=== PATIENT | female | born 1950 | race Caucasian/White ===

== ENCOUNTER 2020-09-11 11:17 | Outpatient (REF) | payer MEDICARE, SELFPAY ==
--- NOTE | ~2020-09-11 | MM_ITS ---
EXAMINATION: MM SCREENING DIGITAL BREAST TOMOSYNTHESIS, BILATERAL CLINICAL INFORMATION: Screening. Asymptomatic. The lifetime risk of breast cancer based on the Tyrer-Cuzick Model is 2%. COMPARISON: Mammography: 08/26/2019, 08/30/2018, 08/11/2017 TECHNIQUE: Digital breast tomosynthesis is performed in both the craniocaudal and mediolateral oblique views along with computer-aided detection (CAD). Synthesized 2D images are generated from the tomosynthesis. FINDINGS: There are scattered areas of fibroglandular density (ACR BI-RADS breast composition Category b). There are no significant masses, abnormal calcifications, or other abnormalities. There is mild bilateral chronic nipple retraction. Parenchymal pattern is similar to previous exams. The axilla are unremarkable. MM/MM tomosynthesis screening BI IMPRESSION: No significant changes from prior exams. ASSESSMENT: BI-RADS 2: Benign RECOMMENDATION: Routine annual mammography screening. This patient's information was entered into a reminder system with a target due date for their next mammogram.
== END 2020-09-11 11:18 | disposition home or self-care (01) ==
LOC: HO.MAMMO 11:17
PROVIDERS: PCP Internal Medicine; Visit Provider Internal Medicine
DX: Z12.31 Encounter for screening mammogram for malignant neoplasm of breast (principal)
CPT/HCPCS: 77063; 77067

== ENCOUNTER 2021-01-14 10:31 | Outpatient (REF) | payer MEDICARE, SELFPAY ==
[2021-01-14 10:34] LABS: MANUAL DIFF FLAG NO
[2021-01-14 10:57] LABS: Mean Corpuscular HGB Conc 33.6 g/dl (31.0-35.0); Mean Corpuscular Hemoglobin 32.3 pg (27.0-33.0); Mean Corpuscular Volume 96.1 fL (80.0-98.0); Mean Platelet Volume 10.5 fL (9.4-12.3); Red Cell Distribution Width 12.9 % (11.0-16.0)
[2021-01-14 11:04] LABS: Appearance Urine HAZY; Color Urine YELLOW; Glucose Urine UA NEG (NEG); Leukocyte Esterase Urine 3+ (NEG); Nitrite Urine NEG (NEG); Specific Gravity - Urine 1.015 (1.005-1.025); Urine Blood NEG (NEG); Urine Ketones NEG (NEG); Urine Protein NEG (NEG-TRACE)
[2021-01-14 11:08] LABS: Basophils Percent Auto 0.6 % (0-2); Eosinophils Absolute Auto 0.2 X10*3/uL (0.0-0.4); Eosinophils Percent Auto 2.2 % (0-4); Hematocrit 39.6 % (37.0-47.0); Hemoglobin 13.3 g/dl (12.0-16.0); Imm Gran Abs Auto 0.02 X10*3/uL (0.00-0.03); Imm Gran Pct Auto 0.3 % (0.0-0.4); Lymphocytes Absolute Auto 3.4 X10*3/uL (1.2-4.9); Lymphocytes Percent Auto 46.9 % (20-40); Monocytes Percent Auto 13.1 % (2-11); Neutrophils Absolute Auto 2.7 x10*3/uL (2.0-8.3); Neutrophils Percent Auto 36.9 % (45-73); Platelet Count 316 X10*3/uL (160-400); Red Blood Count 4.12 X10*6/uL (4.20-5.50); White Blood Count 7.2 X10*3/uL (4.8-10.8)
[2021-01-14 11:41] LABS: Bacteria Urine 3+ /LPF; RBC Urine 0 /HPF (0); Squamous Epithelial Cell Urine 2+ /LPF
[2021-01-14 11:50] LABS: Alanine Aminotransferase 16 U/L (0-31); Albumin Level 4.2 g/dL (3.5-5.0); Alkaline Phosphatase 57 U/L (39-117); Anion Gap 9 (12-20); Aspartate Amino Transferase 18 U/L (5-31); Bilirubin Total 0.5 mg/dL (0.0-1.0); Blood Urea Nitrogen 16 mg/dL (9-16); Calcium 9.4 mg/dL (8.4-10.2); Carbon Dioxide 29 mmol/L (22-29); Chloride 111 mmol/L (96-108); Cholesterol 211 mg/dL; Estimated Glomerular Filt Rate > 60; Glucose Fasting 96 mg/dL (60-99); HDL Cholesterol 79 mg/dL; LDL Cholesterol Calculated 114 mg/dl; Sodium 145 mmol/L (135-145); Total Protein 6.7 g/dL (6.5-8.0); Triglycerides 90 mg/dL
== END 2021-01-14 10:32 | disposition home or self-care (01) ==
LOC: HO.LNP 10:31
PROVIDERS: PCP Internal Medicine; Visit Provider Internal Medicine
DX: Z00.00 Encounter for general adult medical examination without abnormal findings (principal); D72.820 Lymphocytosis (symptomatic)
CPT/HCPCS: 80053; 80061; 81001; 81003; 85025

== ENCOUNTER 2021-09-12 12:01 | Outpatient (REF) | payer MEDICARE, SELFPAY ==
--- NOTE | ~2021-09-12 | MM_ITS ---
EXAMINATION: MM SCREENING DIGITAL BREAST TOMOSYNTHESIS, BILATERAL CLINICAL INFORMATION: Screening. Asymptomatic. The lifetime risk of breast cancer based on the Tyrer-Cuzick Model is 4%. COMPARISON: Mammography: 09/11/2020, 09/05/2019, 08/30/2018 TECHNIQUE: Digital breast tomosynthesis is performed in both the craniocaudal and mediolateral oblique views along with computer-aided detection (CAD). Synthesized 2D images are generated from the tomosynthesis. FINDINGS: There are scattered areas of fibroglandular density (ACR BI-RADS breast composition Category b). There are no significant masses, abnormal calcifications, or other abnormalities. Parenchymal pattern is similar to prior studies. The axilla and skin contours are unremarkable. MM/MM tomosynthesis screening BI IMPRESSION: No mammographic evidence of malignancy. ASSESSMENT: BI-RADS 1: Negative RECOMMENDATION: Routine annual mammography screening. This patient's information was entered into a reminder system with a target due date for their next mammogram.
== END 2021-09-12 12:02 | disposition home or self-care (01) ==
LOC: HO.MAMMO 12:01
PROVIDERS: Visit Provider Internal Medicine
DX: Z12.31 Encounter for screening mammogram for malignant neoplasm of breast (principal)
CPT/HCPCS: 77063; 77067

== ENCOUNTER 2022-02-05 13:00 | Outpatient (REF) | payer MEDICARE, SELFPAY ==
--- NOTE | ~2022-02-05 | XR_ITS ---
EXAMINATION: XR SINUSES CLINICAL INFORMATION: Maxillary sinusitis COMPARISON: January 22, 2016 and January 14, 2016 TECHNIQUE: 4 views of the sinuses were obtained. FINDINGS: Paranasal sinuses appear clear without air-fluid levels. No fractures are identified. No radiodense foreign bodies. XR/XR sinus min 3V IMPRESSION: No plain film evidence of acute or chronic sinusitis.
--- NOTE | ~2022-02-05 | XR_ITS ---
EXAMINATION: XR CHEST CLINICAL INFORMATION: Bilateral pneumonia COMPARISON: None TECHNIQUE: 2 views of the chest were obtained. FINDINGS: No previous studies available for comparison as it is stated that the patient has bilateral pneumonia. Within the right upper lobe there is a region of density which could represent a focus of parenchymal disease or possible mass. Within the right lower lobe there is a region of density seen which could represent airspace disease or possible mass. There is some hazy density seen about the lateral aspect of the right hemidiaphragm which may be silhouetting from parenchymal disease or small amount of pleural fluid. No significant abnormality of the left hemithorax is appreciated. No pneumothorax. Heart normal size. No evidence of pulmonary edema. XR/XR chest 2V IMPRESSION: Densities seen within the right upper lobe and right lower lobe which may be related to airspace disease/pneumonia. Possible mass lesions are not ruled out and either repeat study in [address] may be of help in further evaluation of these findings.
== END 2022-02-05 13:01 | disposition home or self-care (01) ==
LOC: HO.HMGCX 13:00
PROVIDERS: PCP Internal Medicine; Visit Provider Internal Medicine
DX: J18.9 Pneumonia, unspecified organism (principal); J01.01 Acute recurrent maxillary sinusitis
CPT/HCPCS: 70220; 71046

== ENCOUNTER 2022-02-26 11:07 | Outpatient (REF) | payer MEDICARE, SELFPAY ==
[2022-02-26 11:10] LABS: MANUAL DIFF FLAG NO
[2022-02-26 11:45] LABS: Basophils Absolute Auto 0.1 X10*3/uL (0.0-0.2); Basophils Percent Auto 0.5 % (0-2); Eosinophils Absolute Auto 0.3 X10*3/uL (0.0-0.4); Eosinophils Percent Auto 3.1 % (0-4); Hemoglobin 14.6 g/dl (12.0-16.0); Imm Gran Abs Auto 0.02 X10*3/uL (0.00-0.03); Imm Gran Pct Auto 0.2 % (0.0-0.4); Lymphocytes Absolute Auto 3.3 X10*3/uL (1.2-4.9); Lymphocytes Percent Auto 33.9 % (20-40); Mean Corpuscular HGB Conc 33.2 g/dl (31.0-35.0); Mean Corpuscular Hemoglobin 30.8 pg (27.0-33.0); Mean Corpuscular Volume 92.8 fL (80.0-98.0); Mean Platelet Volume 9.8 fL (9.4-12.3); Monocytes Absolute Auto 1.2 X10*3/uL (0.1-1.2); Monocytes Percent Auto 12.5 % (2-11); Neutrophils Absolute Auto 4.8 x10*3/uL (2.0-8.3); Neutrophils Percent Auto 49.8 % (45-73); Platelet Count 442 X10*3/uL (160-400); Red Blood Count 4.74 X10*6/uL (4.20-5.50); Red Cell Distribution Width 12.7 % (11.0-16.0); White Blood Count 9.6 X10*3/uL (4.8-10.8)
[2022-02-26 11:46] LABS: Appearance Urine Clear; Color Urine Yellow; Glucose Urine UA Negative (Negative); Leukocyte Esterase Urine Trace (Negative); Nitrite Urine Negative (Negative); UMIC TRIGGER UA YES; Urine Blood Moderate (2+) (Negative); Urine Ketones Negative (Negative); Urine Protein Negative (Neg-Trace)
[2022-02-26 11:49] LABS: Bacteria Urine None Seen (None Seen); Hyaline Casts Urine 0-2 /LPF (0-2); RBC Urine >20 /HPF (0-2); WBC Urine 0-5 /HPF (0-5)
[2022-02-26 12:02] LABS: Alanine Aminotransferase 12 U/L (0-31); Alkaline Phosphatase 52 U/L (39-117); Anion Gap 14 (12-20); Aspartate Amino Transferase 19 U/L (5-31); Bilirubin Total 0.5 mg/dL (0.0-1.0); Blood Urea Nitrogen 7 mg/dL (9-16); Calcium 9.8 mg/dL (8.4-10.2); Carbon Dioxide 27 mmol/L (22-29); Chloride 106 mmol/L (96-108); Cholesterol 211 mg/dL; Estimated Glomerular Filt Rate > 60; Glucose Fasting 105 mg/dL (60-99); HDL Cholesterol 70 mg/dL; LDL Cholesterol Calculated 111 mg/dl; Potassium 3.7 mmol/L (3.3-5.1); Sodium 143 mmol/L (135-145); Triglycerides 152 mg/dL
== END 2022-02-26 11:08 | disposition home or self-care (01) ==
LOC: HO.LNP 11:07
PROVIDERS: Visit Provider Internal Medicine
DX: Z00.00 Encounter for general adult medical examination without abnormal findings (principal)
CPT/HCPCS: 80053; 80061; 81001; 85025

== ENCOUNTER 2022-02-26 12:33 | Outpatient (REF) | payer MEDICARE, SELFPAY ==
--- NOTE | ~2022-02-26 | CT_ITS ---
EXAMINATION: CT CHEST WITHOUT CONTRAST CLINICAL INFORMATION: Right lung pneumonia. COMPARISON: Chest x-ray of 02/05/2022 TECHNIQUE: Multidetector volumetric CT imaging of the chest was done. Axial MIP volume rendering provided. Sagittal and coronal reformatted images were obtained. This CT examination was performed using dose optimization techniques as appropriate, variously including the following: *Automated exposure control *Adjustment of mA and/or kV according to patient size (this includes techniques or standardized protocols for targeted exams where dose is matched to indication/reason for exam; i.e. extremities or head) *Use of iterative reconstruction technique DLP: 88 mGy-cm FINDINGS: LUNGS: There are moderate changes of centrilobular emphysema seen in the upper lobes bilaterally. There is bronchial wall thickening present bilaterally within the lower lobes with bilateral airspace disease within the lower lobes. There is some nodularity to some regions of disease within the right upper lobe which may be infectious in etiology. However, repeat study for follow-up after treatment is suggested to rule out underlying masses. One of these densities within the right upper lobe on image [phone] series #5 measures 9 x 9 mm in size without cavitation or calcification. A second density within the right upper lobe on image [id number] measures approximately 1.2 x 0.8 cm in size. There is a precarinal lymph node measuring 1.7 x 1.5 cm in size. There is likely bilateral hilar lymphadenopathy. However, without IV contrast this is difficult to evaluate. Visualized thyroid gland appears unremarkable. MEDIASTINUM: There is trace pericardial fluid present. Heart is at the upper limits of normal in size. No thoracic aortic aneurysm. There is mediastinal lymphadenopathy identified with a 2.3 x 1.0 cm aortopulmonic window lymph node. CORONARY ARTERY CALCIFICATION: There is mild calcified coronary artery plaque present. PLEURA: There is a small right pleural effusion. AXILLA: No lymphadenopathy. UPPER ABDOMEN: Multiple interpolar and lower pole calculi are seen within the left kidney. No evidence of hydronephrosis. OSSEOUS STRUCTURES: No suspicious destructive bony lesions are identified. CT/CT chest wo IV con IMPRESSION: Right upper lobe and bilateral lower lobe parenchymal disease consistent with pneumonia. Small right pleural effusion. Some nodularity to disease present and follow-up study after treatment is recommended to rule out underlying mass. Centrilobular emphysema. Mediastinal and hilar lymphadenopathy. Left nephrolithiasis. Fleischner guidelines were followed.
== END 2022-02-26 12:34 | disposition home or self-care (01) ==
LOC: HO.CT 12:33
PROVIDERS: PCP Internal Medicine; Visit Provider Internal Medicine
DX: J18.9 Pneumonia, unspecified organism (principal); R91.8 Other nonspecific abnormal finding of lung field
CPT/HCPCS: 71250

== ENCOUNTER 2022-03-10 14:40 | Outpatient (REF) | payer MEDICARE, SELFPAY | END 2022-03-10 14:41 | disposition home or self-care (01) | LOC: HO.HMGCLNP 14:40 | PROVIDERS: Visit Provider Internal Medicine | DX: J18.9 Pneumonia, unspecified organism (principal) | CPT/HCPCS: 87070; 87205 ==

== ENCOUNTER 2022-03-17 13:35 | Outpatient (REF) | payer MEDICARE, SELFPAY ==
--- NOTE | ~2022-03-17 | XR_ITS ---
EXAMINATION: XR CHEST CLINICAL INFORMATION: Pneumonia COMPARISON: X-ray 03/17/2022 TECHNIQUE: 2 views of the chest were obtained. FINDINGS: Airspace opacity in the right lower lung and right perihilar region, increased from previous. Small right pleural effusion appears increased from previous. There is worsening patchy airspace opacities and interstitial prominence in the right upper lobe. Airspace opacity in the left lower lung retrocardiac region. No evidence of pneumothorax. The right cardiac silhouette is obscured by the airspace disease. The heart size appears within normal limits. XR/XR chest 2V IMPRESSION: Interval worsening of the right perihilar and right lower lobe opacities. Interval worsening of airspace opacities and interstitial opacities in the right upper lobe. Small right pleural effusion, increased from previous. Airspace opacity in the left lower lung. These findings have been better evaluated on the CT chest of 03/19/2022, please refer to the report.
== END 2022-03-17 13:36 | disposition home or self-care (01) ==
LOC: HO.XRAY 13:35
PROVIDERS: PCP Internal Medicine; Visit Provider Internal Medicine
DX: J18.9 Pneumonia, unspecified organism (principal)
CPT/HCPCS: 71046

== ENCOUNTER 2022-03-19 10:49 | Inpatient (IN) | payer MEDICARE, SELFPAY ==
[2022-03-19] VITALS (8 sets, daily range): BP systolic 123–144; BP diastolic 74–94; PULSE 105–119; RESP 14–24; TEMP 36.6–37.1; O2SAT 89–95; BMI 18.1
--- NOTE | ~2022-03-19 | CT_ITS ---
EXAMINATION: CT CHEST WITHOUT CONTRAST CLINICAL INFORMATION: 72-year-old female with history of shortness of breath and cigarette smoking. No improvement with antibiotic treatment for pneumonia. COMPARISON: Chest CT from 02/26/2022 and CXR from 03/17/2022. TECHNIQUE: Multidetector volumetric CT imaging of the chest was done. Axial MIP volume rendering provided. Sagittal and coronal reformatted images were obtained. This CT examination was performed using dose optimization techniques as appropriate, variously including the following: *Automated exposure control *Adjustment of mA and/or kV according to patient size (this includes techniques or standardized protocols for targeted exams where dose is matched to indication/reason for exam; i.e. extremities or head) *Use of iterative reconstruction technique DLP: 135 mGy-cm FINDINGS: LUNGS AND PLEURA: Moderate centrilobular emphysema. The confluent lymphadenopathy and/or infiltrative tumor around the region of the chelo and mainstem bronchi causes luminal narrowing from the bronchial compression. The wall the right mainstem bronchus is diffusely thickened. Again noted is septal thickening and nodularity within the right upper lobe. Irregular nodule in the lateral right upper lobe measures approximately 0.7 x 1.2 cm (image 120, series 5) compared to 0.6 x 1.1 cm on 02/26/2022. A growing irregular nodule in contact with lateral pleura in the lateral right upper lobe that measures up to 1.4 cm (image 149, series 5) was previously 1 cm on 02/26/2022. Persistent mucous plugging of bronchi of the right apex. Atelectasis of the medial segment of the right middle lobe. The right middle lobe bronchus appears to be compressed by the thickened tissue which is inseparable from the lymphadenopathy or infiltrative disease around the right hilum. Interval worsening irregular consolidative opacities in the right lower lobe, possibly due to combination of neoplasm and pneumonia. Persistent small right pleural effusion. Mild smooth septal thickening within the left upper lobe/lingula. The masslike opacity in the posteromedial left lower lobe remains similar in appearance compared to 02/26/2022 although there is interval increased groundglass opacity around the mass or consolidation in the left lower lobe. Small groundglass opacities in posterior left upper lobe are unchanged. CARDIOVASCULAR: The heart size is normal. Small pericardial effusion is present. Mild atherosclerosis of the thoracic aorta without aneurysm. Pulmonary arteries are normal in size. CORONARY ARTERY CALCIFICATION: Mild coronary artery atherosclerotic calcification is noted. MEDIASTINUM AND LOWER NECK: Thyroid gland is grossly unremarkable. The anterior wall of the esophagus is compressed by the lymphadenopathy in the subcarinal area. LYMPHATICS: No internal mammary lymphadenopathy. A right axillary lymph node has increased in size and measures 1.2 cm short axis dimension (image 89, series 5). The persistent lymphadenopathy within the superior mediastinum mildly compresses the posterolateral tracheal wall. The mediastinal lymphadenopathy projecting lateral to the aortic arch and overlying region of aortopulmonary window is slightly worse with lymph nodes currently measuring up to 1.3 cm short axis dimension. The subcarinal lymphadenopathy appears to be slightly worse. Also, there is lymphadenopathy around the right hilum and around bronchi of the central left lower lobe, although evaluation is limited on this noncontrast examination. UPPER ABDOMEN: No acute findings in the visualized upper abdomen compared to 02/26/2022. SKELETAL AND CHEST WALL: Bones appear to be diffusely osteopenic. No acute findings within the degenerated thoracic spine. No aggressive osseous lesion within the thorax. CT/CT chest wo IV con IMPRESSION: * Moderate pulmonary emphysema. * Significant interval worsening of irregular consolidative opacity in right lower lobe. This could represent combination of infiltrative tumor and pneumonia with persistent small right pleural effusion. Also, there is worsening nodularity in the right upper lobe and septal thickening which could reflect presence of obstructed lymphatics and/or lymphangitic tumor spread. The bronchial antoine are thickened and the infiltrative tumor or lymphadenopathy compresses the bronchi at the right hilum and at the central left lower lobe. The masslike opacity in the left lower lobe is similar in appearance compared to 02/26/2022 and could represent another site of neoplastic infiltration. Overall, there is mild worsening of mediastinal lymphadenopathy and right axillary lymphadenopathy compared to 02/26/2022. Recommend further workup and tissue sampling. * No evidence of skeletal metastasis. That Fleischner Society guidelines should not be applied to this patient with suspected severe infiltrative neoplasm and extensive lymphadenopathy. There should be no delay in further diagnostic workup.
--- NOTE | 2022-03-19 11:04 | ECG_ITS ---
Test Reason : SOB Blood Pressure : / mmHG Vent. Rate : 111 BPM Atrial Rate : 111 BPM P-R Int : 140 ms QRS Dur : 074 ms QT Int : 330 ms P-R-T Axes : 048 -11 071 degrees QTc Int : 448 ms Sinus tachycardia Anterior infarct , age undetermined Abnormal ECG No previous ECGs available Referred By: Shyann Whitfield Electronically Signed By:Francisco Javier Valdivia
--- NOTE | 2022-03-19 11:29 | ED.SOB ---
HPI - SOB/Dyspnea General Chief Complaint: Dyspnea Stated Complaint: diff breathing Time Seen by Provider: 03/19/22 11:00 Source: patient and family () Mode of arrival: ambulatory History of Present Illness HPI Narrative: This is a 72-year-old female with a history of prior smoking who was referred in by her primary care provider, Dr. Whitaker, who called ahead with an and suspect for this patient. According to Dr. Whitaker he had tried approximately 20 days of antibiotics, 1st 10 days with Levaquin and remaining 10 days with the Z-Castro but patient continued to worsen with rhonchus cough, and increasing shortness of breath and stated that patient now was showing evidence of hypoxia with an oxygenation of 88% as well as labored breathing. Patient endorses that she has been feeling ?unwell for approximately 1 month but denies any fevers or chills, nausea/vomiting. Related Data Home Medications Medication Instructions Recorded Confirmed albuterol sulfate 90 mcg/actuation 1 puff inhalation Q4H PRN 03/19/22 03/19/22 aerosol inhaler Shortness Of Breath Or Wheezing ascorbic acid (vitamin C) 500 mg 500 mg PO DAILY 03/19/22 03/19/22 tablet (Vitamin C) calcium carbonate 600 mg calcium 600 mg PO DAILY 03/19/22 03/19/22 (1,500 mg) tablet (Calcium) fluticasone propionate 50 1 spray intranasal DAILY 03/19/22 03/19/22 mcg/actuation nasal spray,suspension multivitamin 1 tab PO DAILY 03/19/22 03/19/22 Allergies Allergy/AdvReac Type Severity Reaction Status Date / Time No Known Allergies Allergy Verified 09/18/20 11:56 Review of Systems Review of Systems: Pertinent positives and negatives as stated in HPI [facility] Past Medical History Source: nursing notes reviewed Social History Social History Alcohol intake: former Use of substances other than those prescribed or required for medical reasons: No Advance Directives: No Advance Directives Information Provided: Yes Physical Exam Vital Signs: Vital Signs: Last Vital Signs Temp 98.7 F 03/19/22 13:07 Pulse 113 H 03/19/22 13:37 Resp 22 H 03/19/22 13:37 BP 123/86 03/19/22 13:37 Pulse Ox 93 03/19/22 13:37 O2 Del Method 03/19/22 13:37 O2 Flow Rate 2 03/19/22 13:37 BMI result Body Mass Index 18.1 VITAL SIGNS: Reviewed. GENERAL: Chronically ill, frail, in no acute distress. HEAD: Normocephalic/atraumatic EYES: PERRLA, EOMI EARS: Ext canals without abnormality OROPHARYNX: no oral lesions noted, posterior pharynx clear LUNGS: Tachypnea, increased work of breathing, decreased by basilar with coarse rhonchi noted SpO2<89> patient is placed on supplemental oxygen with good response to 92% CARDIOVASCULAR: Regular rate and rhythm without noted murmurs, no JVD or lower extremity edema. ABDOMEN: Soft, non-tender, non-distended with bowel sounds. MUSCULOSKELETAL: No tenderness, deformities, or effusions noted on gross inspection. EXTREMITIES: No cyanosis, clubbing or edema. SKIN: Inspection of the skin reveals no rashes NEUROLOGIC: Alert and oriented x 3. Strength and sensation to light touch were grossly intact x 4. Medications Administered Discontinued Medications Generic Name Dose Route Start Last Admin Trade Name Freq PRN Reason Stop Dose Admin Piperacillin Sod/Tazobactam 50 mls @ 100 mls/hr 03/19/22 11:05 03/19/22 12:15 Sod 3.375 gm/ Sodium Chloride IV 03/19/22 11:34 Infused ONCE ONE Infusion Medical Decision Making Medical Decision Making [facility] Narrative: 72-year-old female who presents to the emergency room with hypoxia, afebrile, history of smoking raising significant concern for possible lung mass which was communicated with the patient at the time prior to workup. I reviewed the entire workup and my interpretation is that this patient has some form of malignancy within the lungs, patient and were both informed of this, there is no evidence of acute bacterial infection, patient is hypoxic and is requiring supplemental oxygen, there is no leukocytosis. Patient does have an elevated troponin and will repeat although I doubt primary cardiac ischemia and instead feel that this is likely secondary to persistent tachycardia/hypoxia/tachypnea. Differential Diagnosis Differential Diagnoses: The differential diagnosis associated with the presentation includes Please see discussion above Consult Healthcare Provider Management of the patient was discussed with: Hospitalist [id number]: I discussed this case with the inpatient hospitalist who accepts admission. 1415: Consulted Heme/Onc for lung mass. Lab Data 03/19/22 11:22 01/12/23 11:22 Labs: Lab Results 03/19/22 03/19/22 03/19/22 Range/Units 11:22 11:22 11:22 WBC 8.5 (4.8-10.8) X10*3/uL RBC 4.69 (4.20-5.50) X10*6/uL Hgb 14.6 (12.0-16.0) g/dl Hct 42.1 (37.0-47.0) % MCV 89.8 (80.0-98.0) fL MCH 31.1 (27.0-33.0) pg MCHC 34.7 (31.0-35.0) g/dl RDW 12.2 (11.0-16.0) % Plt Count 343 (160-400) X10*3/uL MPV 8.9 L (9.4-12.3) fL Immature Gran % (Auto) 0.2 (0.0-0.4) % Neut % (Auto) 57.0 (45-73) % Lymph % (Auto) 27.1 (20-40) % Sullivan % (Auto) 13.3 H (2-11) % Eos % (Auto) 1.9 (0-4) % Baso % (Auto) 0.5 (0-2) % Lymph # (Auto) 2.3 (1.2-4.9) X10*3/uL Sullivan # (Auto) 1.1 (0.1-1.2) X10*3/uL Eos # (Auto) 0.2 (0.0-0.4) X10*3/uL Baso # (Auto) 0.0 (0.0-0.2) X10*3/uL Abs Immat Gran (auto) 0.02 (0.00-0.03) X10*3/uL Absolute Neuts (auto) 4.8 (2.0-8.3) x10*3/uL Absolute Nucleated RBC 0.000 (0.0-0.012) X10*3/uL Nucleated RBC % (auto) 0.0 (0.0-0.2) /100WBC PT 13.0 (10.0-13.1) SEC INR 1.1 (0.9-1.1) Lactic Acid (0.5-2.0) mmol/L Troponin I High Sens (<3.5-17.0) ng/L B-Natriuretic Peptide 18 (<100) pg/mL Influenza Type A (PCR) (Negative) Influenza Type B (PCR) (Negative) RSV RNA Qual (PCR) (Negative) SARS-CoV-2 RNA (RT-PCR) (Negative) 03/19/22 03/19/22 03/19/22 Range/Units 11:22 11:22 11:32 WBC (4.8-10.8) X10*3/uL RBC (4.20-5.50) X10*6/uL Hgb (12.0-16.0) g/dl Hct (37.0-47.0) % MCV (80.0-98.0) fL MCH (27.0-33.0) pg MCHC (31.0-35.0) g/dl RDW (11.0-16.0) % Plt Count (160-400) X10*3/uL MPV (9.4-12.3) fL Immature Gran % (Auto) (0.0-0.4) % Neut % (Auto) (45-73) % Lymph % (Auto) (20-40) % Sullivan % (Auto) (2-11) % Eos % (Auto) (0-4) % Baso % (Auto) (0-2) % Lymph # (Auto) (1.2-4.9) X10*3/uL Sullivan # (Auto) (0.1-1.2) X10*3/uL Eos # (Auto) (0.0-0.4) X10*3/uL Baso # (Auto) (0.0-0.2) X10*3/uL Abs Immat Gran (auto) (0.00-0.03) X10*3/uL Absolute Neuts (auto) (2.0-8.3) x10*3/uL Absolute Nucleated RBC (0.0-0.012) X10*3/uL Nucleated RBC % (auto) (0.0-0.2) /100WBC PT (10.0-13.1) SEC INR (0.9-1.1) Lactic Acid 1.4 (0.5-2.0) mmol/L Troponin I High Sens 101.3 H* (<3.5-17.0) ng/L B-Natriuretic Peptide (<100) pg/mL Influenza Type A (PCR) NEGATIVE (Negative) Influenza Type B (PCR) NEGATIVE (Negative) RSV RNA Qual (PCR) NEGATIVE (Negative) SARS-CoV-2 RNA (RT-PCR) NEGATIVE (Negative) Independent Interpretation I performed an independent interpretation of an: EKG Interpretation: Sinus tachycardia, HR -111, no STEMI, HI/QRS/QTC is within normal limits. Critical Care Time Critical Care Time Critical Care Time: Yes Total Critical Care Time: 60 Attestation: I personally attest to this time spent taking care of the patient. Discharge Plan Discharge Clinical Impression: Hypoxia, Lung mass Patient Disposition: Admitted As Inpatient Prescriptions: No Action albuterol sulfate 90 mcg/actuation HFA aerosol inhaler 1 puff inhalation Q4H PRN (Reason: Shortness Of Breath Or Wheezing) fluticasone propionate 50 mcg/actuation spray,suspension 1 spray intranasal DAILY Rx Instructions: use 1 spray into each nostril multivitamin Tablet 1 tab PO DAILY calcium carbonate [Calcium 600] 600 mg calcium (1,500 mg) Tablet 600 mg PO DAILY ascorbic acid (vitamin C) [Vitamin C] 500 mg Tablet 500 mg PO DAILY
[2022-03-19 11:30] LABS: MANUAL DIFF FLAG NO
[2022-03-19] MEDS: Piperacillin Sodium/Tazobactam 3.375 GM in 0.9 % Sodium Chloride 50 ML IV (11:36)
[2022-03-19 11:40] LABS: INTERNATIONAL NORM RATIO 1.1 (0.9-1.1)
[2022-03-19 11:43] LABS: Basophils Percent Auto 0.5 % (0-2); Eosinophils Absolute Auto 0.2 X10*3/uL (0.0-0.4); Eosinophils Percent Auto 1.9 % (0-4); Hematocrit 42.1 % (37.0-47.0); Hemoglobin 14.6 g/dl (12.0-16.0); Imm Gran Abs Auto 0.02 X10*3/uL (0.00-0.03); Imm Gran Pct Auto 0.2 % (0.0-0.4); Lactic Acid 1.4 mmol/L (0.5-2.0); Lymphocytes Absolute Auto 2.3 X10*3/uL (1.2-4.9); Lymphocytes Percent Auto 27.1 % (20-40); Mean Corpuscular HGB Conc 34.7 g/dl (31.0-35.0); Mean Corpuscular Hemoglobin 31.1 pg (27.0-33.0); Mean Corpuscular Volume 89.8 fL (80.0-98.0); Mean Platelet Volume 8.9 fL (9.4-12.3); Monocytes Absolute Auto 1.1 X10*3/uL (0.1-1.2); Monocytes Percent Auto 13.3 % (2-11); Neutrophils Absolute Auto 4.8 x10*3/uL (2.0-8.3); Platelet Count 343 X10*3/uL (160-400); Red Blood Count 4.69 X10*6/uL (4.20-5.50); Red Cell Distribution Width 12.2 % (11.0-16.0); White Blood Count 8.5 X10*3/uL (4.8-10.8)
[2022-03-19 11:59] LABS: B Type Natriuretic Peptide 18 pg/mL (<100)
[2022-03-19 12:05] LABS: Troponin-I High Sensitivity 101.3 ng/L (<3.5-17.0)
--- NOTE | 2022-03-19 12:17 | PHA.MEDREC ---
Pharmacy Consult ? Medication Reconciliation Pharmacy has completed the medication reconciliation. Spoke to patient.
[2022-03-19 12:51] LABS: Influenza A PCR NEGATIVE (Negative); Influenza B PCR NEGATIVE (Negative); Resp Syncy Virus RNA Qual PCR NEGATIVE (Negative); SARS COV2 PCR INHOUSE NEGATIVE (Negative)
[2022-03-19 14:15] LABS: Alanine Aminotransferase 18 U/L (0-31); Albumin Level 3.8 g/dL (3.5-5.0); Alkaline Phosphatase 51 U/L (39-117); Anion Gap 15 (12-20); Aspartate Amino Transferase 20 U/L (5-31); Bilirubin Total 0.6 mg/dL (0.0-1.0); Blood Urea Nitrogen 7 mg/dL (9-16); Calcium 9.6 mg/dL (8.4-10.2); Carbon Dioxide 25 mmol/L (22-29); Chloride 105 mmol/L (96-108); Estimated Glomerular Filt Rate > 60; Glucose Random 98 mg/dL (60-115); Potassium 3.7 mmol/L (3.3-5.1); Sodium 141 mmol/L (135-145); Total Protein 6.5 g/dL (6.5-8.0)
--- NOTE | 2022-03-19 14:28 | PM.IMHP ---
History of Present Illness Date of Service: 03/19/22 Attending physician on admission: Shawn Montes Chief Complaint: Hypoxia, cough Pt is a 72-year-old female not on chronic home meds with no significant PMH except for chronic tachycardia and a hysterectomy 30+ years ago who presents to the ED with worsening cough and shortness of breath for the past month. Patient initially went to see her PCP for her symptoms and was diagnosed with pneumonia after a chest x-ray and treated for 10 days with Levaquin. Patient did not improve and was prescribed a 10-day Z-Castro. Patient returned to her PCP with persistent, worsening symptoms and was sent to the ED for further evaluation. Patient states that she has shortness of breath primarily with exertion and has had a cough productive of [id number] sputum. Patient denies any other complaints. No chest pain/pressure, palpitations. No hematemesis or recent unintentional weight loss. Denies fever, chills, nausea, vomiting. Of note patient is a former smoker but quit over 30 years ago. Patient also states that she has always had an elevated heart rate of around 100-105 beats per minute. ? In the ED labs were significant for no leukocytosis, and elevated troponin of 101.[address]?of the chest found moderate pulmonary emphysema, with significant interval worsening of irregular consolidative opacities in the right lower lobe that could represent noted a combination of a rifle traded tumor and pneumonia with persistent small right pleural effusion. And also found worsening nodularity in the right upper lobe and septal thickening suggestive of obstructive lymphatics and or lymphangitic tumor spread, and bronchial wall thickening with infiltrative tumor or lymphadenopathy compression of the bronchi at the right hilum and central left lower lobe. Also notes mild worsening mediastinal lymphadenopathy and right axillary lymphadenopathy compared to 02/26/2022. EKG shows sinus tachycardia without evidence of acute ischemia. Pt was treated with Zosyn. Pt will be admitted to the hospital Review of Systems Review of Systems: Shortness of breath with exertion x1 month Cough productive of white to clear sputum x1 month Denies chest pain/palpitations No hematemesis Denies fever, chills, nausea, vomiting PMFSH Social History Alcohol intake: former Use of substances other than those prescribed or required for medical reasons: No Advance Directives: No Advance Directives Information Provided: Yes Meds Allergies Allergy/AdvReac Type Severity Reaction Status Date / Time No Known Allergies Allergy Verified 09/18/20 11:56 Home Medications Medication Instructions Recorded Confirmed Last Taken Type albuterol sulfate 90 mcg/actuation 1 puff inhalation Q4H PRN 03/19/22 03/19/22 03/19/22 09:00 History aerosol inhaler Shortness Of Breath Or Wheezing ascorbic acid (vitamin C) 500 mg 500 mg PO DAILY 03/19/22 03/19/22 03/19/22 09:00 History tablet (Vitamin C) calcium carbonate 600 mg calcium 600 mg PO DAILY 03/19/22 03/19/22 03/19/22 09:00 History (1,500 mg) tablet (Calcium) fluticasone propionate 50 1 spray intranasal DAILY 03/19/22 03/19/22 03/18/22 History mcg/actuation nasal spray,suspension multivitamin 1 tab PO DAILY 03/19/22 03/19/22 03/19/22 09:00 History Physical Exam Vital Signs and Narrative: Vital Signs: Last Vital Signs Temp 98.7 F 03/19/22 13:07 Pulse 113 H 03/19/22 13:37 Resp 22 H 03/19/22 13:37 BP 123/86 03/19/22 13:37 Pulse Ox 93 03/19/22 13:37 O2 Del Method 03/19/22 13:37 O2 Flow Rate 2 03/19/22 13:37 BMI result Body Mass Index 18.1 Constitutional: Alert, in no acute distress. Mental Status: Oriented to person, place and time. Eyes: Pupils are equal, round, and reactive to light. Ear, Nose, and Throat: Oropharynx clear, mucous membranes moist. Ears and nose without deformities. Trachea midline. Respiratory: Diffuse expiratory rhonchi bilaterally. Cardiovascular: S1, S2, tachycardic. No murmurs, rubs, or gallops. Gastrointestinal: Abdomen soft, non-tender, non-distended. Normal bowel sounds. Neurologic: Cranial nerves II-XI are grossly intact. No focal neurological deficits. Moves all extremities spontaneously. Skin: No rashes or lesions noted. Musculoskeletal: No cyanosis or clubbing. Extremities: No edema. Psychiatric: Normal mood and affect. Results Labs 03/19/22 11:22 03/19/22 13:52 Labs: Laboratory Results - last 24 hr 03/19/22 03/19/22 03/19/22 11:22 11:22 11:22 MCV 89.8 MCH 31.1 MCHC 34.7 RDW 12.2 Plt Count 343 MPV 8.9 L Immature Gran % (Auto) 0.2 Neut % (Auto) 57.0 Lymph % (Auto) 27.1 [place] % (Auto) 13.3 H Eos % (Auto) 1.9 Baso % (Auto) 0.5 Lymph # (Auto) 2.3 [place] # (Auto) 1.1 Eos # (Auto) 0.2 Baso # (Auto) 0.0 Abs Immat Gran (auto) 0.02 Absolute Neuts (auto) 4.8 Absolute Nucleated RBC 0.000 Nucleated RBC % (auto) 0.0 PT 13.0 INR 1.1 Anion Gap Estim Creat Clear Calc Estimated GFR Random Glucose Lactic Acid Calcium Total Bilirubin AST ALT Alkaline Phosphatase Troponin I High Sens B-Natriuretic Peptide 18 Total Protein Albumin Influenza Type A (PCR) Influenza Type B (PCR) RSV RNA Qual (PCR) SARS-CoV-2 RNA (RT-PCR) 03/19/22 03/19/22 03/19/22 11:22 11:22 11:32 MCV MCH MCHC RDW Plt Count MPV Immature Gran % (Auto) Neut % (Auto) Lymph % (Auto) [place] % (Auto) Eos % (Auto) Baso % (Auto) Lymph # (Auto) [place] # (Auto) Eos # (Auto) Baso # (Auto) Abs Immat Gran (auto) Absolute Neuts (auto) Absolute Nucleated RBC Nucleated RBC % (auto) PT INR Anion Gap Estim Creat Clear Calc Estimated GFR Random Glucose Lactic Acid 1.4 Calcium Total Bilirubin AST ALT Alkaline Phosphatase Troponin I High Sens 101.3 H* B-Natriuretic Peptide Total Protein Albumin Influenza Type A (PCR) NEGATIVE Influenza Type B (PCR) NEGATIVE RSV RNA Qual (PCR) NEGATIVE SARS-CoV-2 RNA (RT-PCR) NEGATIVE 03/19/22 13:52 MCV MCH MCHC RDW Plt Count MPV Immature Gran % (Auto) Neut % (Auto) Lymph % (Auto) [place] % (Auto) Eos % (Auto) Baso % (Auto) Lymph # (Auto) [place] # (Auto) Eos # (Auto) Baso # (Auto) Abs Immat Gran (auto) Absolute Neuts (auto) Absolute Nucleated RBC Nucleated RBC % (auto) PT INR Anion Gap 15 Estim Creat Clear Calc 53.0 Estimated GFR > 60 Random Glucose 98 Lactic Acid Calcium 9.6 Total Bilirubin 0.6 AST 20 ALT 18 Alkaline Phosphatase 51 Troponin I High Sens B-Natriuretic Peptide Total Protein 6.5 Albumin 3.8 Influenza Type A (PCR) Influenza Type B (PCR) RSV RNA Qual (PCR) SARS-CoV-2 RNA (RT-PCR) Imaging Radiologist's Impressions: Impressions Chest CT 03/19/22 11:41 IMPRESSION: * Moderate pulmonary emphysema. * Significant interval worsening of irregular consolidative opacity in right lower lobe. This could represent combination of infiltrative tumor and pneumonia with persistent small right pleural effusion. Also, there is worsening nodularity in the right upper lobe and septal thickening which could reflect presence of obstructed lymphatics and/or lymphangitic tumor spread. The bronchial antoine are thickened and the infiltrative tumor or lymphadenopathy compresses the bronchi at the right hilum and at the central left lower lobe. The masslike opacity in the left lower lobe is similar in appearance compared to 02/26/2022 and could represent another site of neoplastic infiltration. Overall, there is mild worsening of mediastinal lymphadenopathy and right axillary lymphadenopathy compared to 02/26/2022. Recommend further workup and tissue sampling. * No evidence of skeletal metastasis. That Fleischner Society guidelines should not be applied to this patient with suspected severe infiltrative neoplasm and extensive lymphadenopathy. There should be no delay in further diagnostic workup. Assessment and Plan (1) Shortness of breath: Status: Acute (2) Abnormal CT scan, chest: Status: Acute (3) Obstructive pneumonia: Status: Acute Plan Pt is a 72-year-old female not on chronic home meds with no significant PMH except for chronic tachycardia and a hysterectomy 30+ years ago who presents to the ED with worsening cough and shortness of breath for the past month. CT of chest suggestive lung malignancy and postobstructive pneumonia. Patient admitted to hospital for further workup and management of potential lung malignancy and postobstructive pneumonia. Post-obstructive pneumonia Likely secondary to lung malignancy Failed outpatient therapy with levofloxacin and azithromycin Zosyn 4.5g q6, day 1/7 DuoNebs q4 prn Oncology consult Pulmonology consult for potential biopsy tomorrow NPO after midnight Tachycardia, chronic Patient states she has ?always? had an elevated HR of over 100 Hold on meds for now Monitor for palpitations, HR >120 Elevated troponin Troponin of 101.3, repeat 113.4 Likely due to demand ischemia Patient denies chest pain/pressure EKG shows no acute ischemic changes Cardiology consult Full Code Attending:?Dr. Montes DVT Prophylaxis: Lovenox Pt will require a hospitalization of at least two nights for treatment of?postobstructive pneumonia with IV ABX and further workup and evaluation potential lung malignancy.. Time Spent With Patient Time: Total time managing care of this patient today ____ minutes. Quality Stroke Does the patient have a stroke diagnosis?: No VTE Prior VTE?: No VTE Risk Level:: Medical - moderate - high VTE Device Contraindication: Treatment Not Indicated VTE Drug Contraindication: N/A - Med Ordered
--- NOTE | 2022-03-19 14:47 | PC.NURSE ---
pt aware of plan of care for admission to hosp.
[2022-03-19 15:02] LABS: Lactate Dehydrogenase 197 U/L (122-220)
--- NOTE | 2022-03-19 15:37 | PM.HEMONCCN ---
Subjective - Subjective Chief complaint: Shortness of breath Patient: new to practice Consult date: 03/19/22 Primary Care Provider: Ariel Whitaker MD HPI - Consult Narrative Reason for consult: Probable lung cancer Narrative: Melissa Stanley is a 72 year old woman with no significant past medical history who is presenting with persistent shortness of breath, cough and weight loss for the last 3 weeks. She was diagnosed with pneumonia about 2 weeks ago and was treated with 2 courses of antibiotics. Her symptoms did not improve, she has persistent cough without hemoptysis and shortness of breath. She reports loss of appetite and weight loss of about 7 lb in the last 3 weeks. She denies any headache or dizziness. No fever, chills or night sweats. No chest pain or palpitations. She quit smoking over 30 years ago. No history of any prior radiation therapy. She is up-to-date with screening mammograms and colonoscopy. Review of Systems - Constitutional Reports as per HPI - Cardiovascular Reports no additional cardiovascular complaints - Respiratory Reports no additional respiratory complaints - Gastrointestinal Reports no additional gastrointestinal complaints Oncology Screenings - ECOG Performance Status ECOG Performance Status: [facility] Social History: Social History (Last Reviewed 03/19/22 @ 14:08 by Shyann Whitfield MD) Substance Use History: Use of substances other than those prescribed or required for medical reasons: No Advance Directives: Advance Directives: No Advance Directives Information Provided: Yes Home Medications and Allergies Current Medications: Current Medications Acetaminophen (Acetaminophen 325 Mg Tablet) 650 mg PO Q6H PRN PRN Reason: Pain, Mild (Pain Scale 1-3) Ascorbic Acid (Ascorbic Acid 500 Mg Tablet) 500 mg PO DAILY [facility] Calcium Carbonate (Calcium Carbonate 500 Mg Tablet) 500 mg PO DAILY [facility] Albuterol Sulfate 2.5 mg/ (Ipratropium [place] 0.5 mg) 0 mg INHALE RQ4H WHILE AWAKE PRN PRN Reason: Shortness of Breath Docusate Sodium (Docusate Sodium 100 Mg Capsule) 100 mg PO DAILY PRN PRN Reason: Constipation Enoxaparin Sodium (Enoxaparin Sodium 40 Mg/0.4 Ml Syringe) 40 mg SUBCUT Q24H [facility] Piperacillin Sod/Tazobactam (Sod 4.5 gm/ Sodium Chloride) 50 mls @ 100 mls/hr IV Q6H [facility] Multivitamins/Vitamin C (Multivitamin Tablet) 1 tab PO DAILY [facility] Ondansetron HCl (Ondansetron Hcl 4 Mg/2 Ml Vial) 4 mg IVPUSH Q8H PRN PRN Reason: Nausea and Vomiting Sodium Chloride (0.9 % Sodium Chloride Flush 3 Ml Syringe) 3 ml IVFLUSH QSHIFT [facility] Home Medications Medication Instructions Recorded Confirmed Type albuterol sulfate 90 mcg/actuation 1 puff inhalation Q4H PRN 03/19/22 03/19/22 History aerosol inhaler Shortness Of Breath Or Wheezing ascorbic acid (vitamin C) 500 mg 500 mg PO DAILY 03/19/22 03/19/22 History tablet (Vitamin C) calcium carbonate 600 mg calcium 600 mg PO DAILY 03/19/22 03/19/22 History (1,500 mg) tablet (Calcium) fluticasone propionate 50 1 spray intranasal DAILY 03/19/22 03/19/22 History mcg/actuation nasal spray,suspension multivitamin 1 tab PO DAILY 03/19/22 03/19/22 History Allergies Allergy/AdvReac Type Severity Reaction Status Date / Time No Known Allergies Allergy Verified 09/18/20 11:56 Physical Exam Vital signs: Vital Signs Temp 98.7 F 03/19/22 13:07 Pulse 113 H 03/19/22 13:37 Resp 22 H 03/19/22 13:37 BP 123/86 03/19/22 13:37 Pulse Ox 93 03/19/22 13:37 O2 Del Method 03/19/22 13:37 O2 Flow Rate 2 03/19/22 13:37 Intake & Output 03/18/22 03/19/22 03/19/22 18:59 06:59 18:59 Intake Total 50 / 50 Balance 50 / 50 Intake: Intake, IV Amount 50 / 50 Piperacillin Sodium/Tazobactam 50 / 50 3.375 gm In 0.9 % Sodium Chloride 50 ml @ 100 mls/hr IV ONCE ONE Rx#:[id number] Other: Weight 42.184 kg Weight 42.184 kg - Constitutional Present: no acute distress, thin - Routine HEENT Exam Head: Present: normal inspection Eye: Present: EOMI, PERRL - Routine Neck Exam Present: supple. Absent: lymphadenopathy - Routine Respiratory Exam Present: decreased breath sounds, rhonchi - Routine Cardiovascular Exam Cardiovascular: Present: RRR, S1, S2 - Routine Abdominal Exam Present: soft - Routine Extremities Exam Present: normal inspection - Routine Skin Exam Present: intact - Routine Neurological Exam Present: alert, oriented X3 - Routine Psychiatric Exam Present: anxious Hem/Onc Consult Result - Labs CBC & Chem 7: 03/19/22 11:22 03/19/22 13:52 Labs: Short CBC 03/19/22 Range/Units 11:22 WBC 8.5 (4.8-10.8) X10*3/uL Hgb 14.6 (12.0-16.0) g/dl Hct 42.1 (37.0-47.0) % Plt Count 343 (160-400) X10*3/uL BMP 03/19/22 13:52 Sodium 141 Potassium 3.7 Chloride 105 Carbon Dioxide 25 BUN 7 L Creatinine 0.63 Calcium 9.6 Liver Function 03/19/22 Range/Units 13:52 Total Bilirubin 0.6 (0.0-1.0) mg/dL AST 20 (5-31) U/L ALT 18 (0-31) U/L Alkaline Phosphatase 51 (39-117) U/L Albumin 3.8 (3.5-5.0) g/dL Assessment and Plan Patient Active problem list reviewed?: Yes (1) Lung mass Status: Acute Assessment and plan: 1. This is a 72-year-old woman presenting with worsening shortness of breath and weight loss. CT chest without contrast performed 03/19/2022 shows moderate emphysema, lymphadenopathy/infiltrative tumor around region of chelo and mainstem bronchus with diffusely thickened right mainstem bronchus. Septal thickening and nodularity within right upper lobe irregular nodule in the lateral right upper lobe measuring 0.7 x 1.2 cm. A growing irregular nodule in contact with lateral pleura in right upper lobe measuring 1.4 cm. Interval worsening of consolidative opacities in the right lower lobe possibly due to combination of neoplasm and pneumonia. Persistent small right pleural effusion. A right axillary lymph node has increased in size and measures 1.2 cm. Subcarinal lymphadenopathy also appears to be worse. No evidence of skeletal metastasis. LDH is normal but CEA is elevated at 445 NG/mL. She will need tissue diagnosis, bronchoscopy/biopsy is planned for tomorrow. Further staging workup would include brain MRI scan and PET-CT which can be done as outpatient. I briefly discussed with patient and about probability of lung cancer and further staging. Depending on this, recommendations for treatment will be made. I thank you very much for this consultation, will follow with you. - Time Spent With Patient Time Spent with Patient (in minutes): 20
--- NOTE | 2022-03-19 16:03 | P.CONPL_ITS ---
History of Present Illness History of Present Illness Consult date: 03/19/22 Reason for consult: abnormal CXR/CT Chief complaint: Cough, SOB Narrative: 72-year-old lady with no prior medical history admitted on 03/19/2022 with symptoms of pneumonia refractory to initial outpatient treatment with levofloxacin and Z-Castro. On ER evaluation patient mildly hypoxic, tachycardia, CT chest with large peripheral pulmonary nodules and right-sided pathologic central bronchi with hilar enlargement/compression. Patient denies exposure to industrial dusts. She has been employed and office environment. Patient is remote smoker, quit over 30 years prior, of unclear amount of cigarette. She does complain of weight loss secondary to poor appetite over the last 3 months. She denies family history of lung disease. Review of Systems Constitutional: Constitutional: Denies daytime sleepiness, Denies excessive sweating, Denies fatigue, Denies fever(s), Denies lethargy, Denies malaise, Denies night sweats, Denies snoring and Reports weight loss Eyes: Eyes: Denies blurry vision and Denies itchy eyes ENT: Denies nasal congestion, Denies post nasal drip, Denies sinus pain, Denies sinus pressure and Denies other ( Thrush) Cardiovascular: Cardiovascular: Denies chest pain, Denies pedal edema, Reports dyspnea, Denies orthopnea and Denies paroxysmal nocturnal dyspnea Respiratory: Respiratory: Reports cough, Denies hemoptysis, Reports excessive phlegm production, Reports dyspnea, Denies snoring and Denies wheezing Gastrointestinal: Gastrointestinal: Denies abdominal pain and Denies heartburn Musculoskeletal: Musculoskeletal: Denies myalgias, Denies arthralgias and Denies joint swelling Integumentary/Breasts: Skin/Breast: Denies rash Neurologic: Denies memory loss and Denies seizure-like activity Psychiatric: Psychiatric: Denies abnormal sleep pattern, Denies anxiety and Denies memory loss Endocrine: Endocrine: Denies excessive sweating, Denies fatigue and Denies heat intolerance Hematologic/Lymphatic: Hematologic/Lymphatic: Denies easy bruising Allergic/Immunologic: Allergic/Immunologic: Denies itchy eyes, Denies seasonal rhinorrhea and Denies wheezing PMFSH Social History Social History Alcohol intake: former Use of substances other than those prescribed or required for medical reasons: No Advance Directives: No Advance Directives Information Provided: Yes Meds Allergies Allergy/AdvReac Type Severity Reaction Status Date / Time No Known Allergies Allergy Verified 09/18/20 11:56 Active Medications: Current Medications Acetaminophen (Acetaminophen 325 Mg Tablet) 650 mg PO Q6H PRN PRN Reason: Pain, Mild (Pain Scale 1-3) Ascorbic Acid (Ascorbic Acid 500 Mg Tablet) 500 mg PO DAILY [facility] Calcium Carbonate (Calcium Carbonate 500 Mg Tablet) 500 mg PO DAILY [facility] Albuterol Sulfate 2.5 mg/ (Ipratropium [place] 0.5 mg) 0 mg INHALE RQ4H WHILE AWAKE PRN PRN Reason: Shortness of Breath Docusate Sodium (Docusate Sodium 100 Mg Capsule) 100 mg PO DAILY PRN PRN Reason: Constipation Enoxaparin Sodium (Enoxaparin Sodium 40 Mg/0.4 Ml Syringe) 40 mg SUBCUT Q24H [facility] Piperacillin Sod/Tazobactam (Sod 4.5 gm/ Sodium Chloride) 50 mls @ 100 mls/hr IV Q6H [facility] Multivitamins/Vitamin C (Multivitamin Tablet) 1 tab PO DAILY [facility] Ondansetron HCl (Ondansetron Hcl 4 Mg/2 Ml Vial) 4 mg IVPUSH Q8H PRN PRN Reason: Nausea and Vomiting Sodium Chloride (0.9 % Sodium Chloride Flush 3 Ml Syringe) 3 ml IVFLUSH QSHIFT [facility] Home Medications Medication Instructions Recorded Confirmed Last Taken Type albuterol sulfate 90 mcg/actuation 1 puff inhalation Q4H PRN 03/19/22 03/19/22 03/19/22 09:00 History aerosol inhaler Shortness Of Breath Or Wheezing ascorbic acid (vitamin C) 500 mg 500 mg PO DAILY 03/19/22 03/19/22 03/19/22 09:00 History tablet (Vitamin C) calcium carbonate 600 mg calcium 600 mg PO DAILY 03/19/22 03/19/22 03/19/22 09:00 History (1,500 mg) tablet (Calcium) fluticasone propionate 50 1 spray intranasal DAILY 03/19/22 03/19/22 03/18/22 History mcg/actuation nasal spray,suspension multivitamin 1 tab PO DAILY 03/19/22 03/19/22 03/19/22 09:00 History Physical Exam Vital Signs: Vital Signs: Last Vital Signs Temp 98.7 F 03/19/22 13:07 Pulse 113 H 03/19/22 13:37 Resp 22 H 03/19/22 13:37 BP 123/86 03/19/22 13:37 Pulse Ox 93 03/19/22 13:37 O2 Del Method 03/19/22 13:37 O2 Flow Rate 2 03/19/22 13:37 BMI result Body Mass Index 18.1 Const: General: no acute distress and alert Nutritional Appearance: not obese Orientation/consciousness: Other orientation findings ( oriented) HEENT: Head: Yes atraumatic Mouth: no other ( thrush) Throat: No postnasal drainage Eyes: General: appearance normal, both eyes and all related structures Sclerae: sclerae normal EOM: EOMs intact bilaterally Neck: Neck: Yes supple Lymphatic: no lymphadenopathy noted Resp: Effort & Inspection: normal respiratory effort and no use of accessory muscles Auscultation: crackles (Bilateral, right greater than left) Cardio: Rate: regular rate Rhythm: regular rhythm Heart sounds: no gallops, no murmurs and no rubs GI: Palpation (GI): Soft to palpation and Other GI palpation findings present ( nontender) Skin: General skin exam: other ( warm) Rashes: no rashes Extrem: General: No clubbing, No cyanosis and No edema Results Laboratory Findings 03/19/22 11:22 03/19/22 13:52 ABG, PT/INR, D-dimer: PT/INR, D-dimer PT 13.0 SEC (10.0-13.1) 03/19/22 11:22 INR 1.1 (0.9-1.1) 03/19/22 11:22 Abnormal lab findings: Abnormal Labs 03/19/22 03/19/22 03/19/22 11:22 11:22 13:52 MPV 8.9 L [place] % (Auto) 13.3 H BUN 7 L Troponin I High Sens 101.3 H* Assessment and Plan (1) Acute respiratory failure with hypoxia: Status: Acute (2) Abnormal CT scan, chest: Status: Acute Plan Impression: 72-year-old lady who admitted with what appears to be postobstructive pneumonia secondary to lung cancer. Recommendations: Agree with empiric broad-spectrum antibiotic coverage. Patient is scheduled for flexible bronchoscopy on 03/20/2022 at 10:30. NPO at midnight. Time Spent With Patient Time: Total time managing care of this patient today ____ minutes. Procedures Date of Service Date of Service: 03/19/22
[2022-03-19] MEDS: 0.9 % Sodium Chloride Flush 3 ML SYRINGE IVFLUSH (17:13)
[2022-03-19] MEDS: Enoxaparin Sodium 40 MG/0.4 ML SYRINGE SUBCUT (17:15)
[2022-03-19 17:34] LABS: Troponin-I High Sensitivity 113.4 ng/L (<3.5-17.0)
--- NOTE | 2022-03-19 19:17 | PC.NURSE ---
Pt resting quietly, family at bedside.
--- NOTE | 2022-03-19 21:30 | PC.NURSE ---
Pt ambulated to restroom with PCT.
--- NOTE | 2022-03-19 22:22 | MHC.CM.PN ---
IMM 03/19. Met with admitted patient in ED OverFlow. Awaiting bed assignment. Pt to have lung biopsy 03/20.Independent. Lives with . No DME/Services. [employer] x2/booster. HCP reviewed, completed and signed. Copies given Uploaded into [facility] [email or web address]. HCP/ Rogelio Jaden ([phone]). D/C plan: home without services. to transport. CM to follow for discharge planning.
[2022-03-20] VITALS (19 sets, daily range): BP systolic 96–125; BP diastolic 60–80; PULSE 105–127; RESP 18–30; TEMP 36.2–37.7; O2SAT 90–98; BMI 18.1
--- NOTE | 2022-03-20 01:38 | PC.NURSE ---
Pt sleeping at this time, respirations regular. Family at bedside.
--- NOTE | 2022-03-20 03:28 | PC.NURSE ---
Pt taken to restroom by PCT, pt now resting in room. Family at bedside.
--- NOTE | 2022-03-20 05:11 | PC.NURSE ---
PT resting quietly no needs expressed, family at bedside.
--- NOTE | 2022-03-20 09:35 | PM.CCN ---
Critical Care Event Note Summary Date of Service: 03/20/22 Code activated: No Narrative: Troponin with minimum elevation not consistent with acute or subacute cardiac injury, particularly on the background of postobstructive pneumonia. At this time patient does not require cardiology consultation for minor procedure , discussed with hospitalized Dr. Coates. Would plan on bronchoscopy later today as scheduled. Critical Care Time (minutes): 0
--- NOTE | 2022-03-20 09:58 | HO.ANESPROP2 ---
[facility] Active Problems Active Problems: All Active Problems (Updated 03/19/22 @ 17:33 by ROBI Villalobos) Obstructive pneumonia (Acute) Shortness of breath (Acute) Abnormal CT scan, chest (Acute) Acute respiratory failure with hypoxia (Acute) Hypoxia (Acute) Lung mass (Acute) Laceration of finger (Acute) Family History Family history of problems with anesthesia: No Surgical History History of Problems with Anesthesia: No Social History Social History Alcohol intake: former Use of substances other than those prescribed or required for medical reasons: No Advance Directives: No Advance Directives Information Provided: Yes service: No Current occupational status: retired Meds Allergies Allergy/AdvReac Type Severity Reaction Status Date / Time No Known Allergies Allergy Verified 09/18/20 11:56 Active Medications: Current Medications Acetaminophen (Acetaminophen 325 Mg Tablet) 650 mg PO Q6H PRN PRN Reason: Pain, Mild (Pain Scale 1-3) Ascorbic Acid (Ascorbic Acid 500 Mg Tablet) 500 mg PO DAILY [facility] Calcium Carbonate (Calcium Carbonate 500 Mg Tablet) 500 mg PO DAILY [facility] Albuterol Sulfate 2.5 mg/ (Ipratropium [place] 0.5 mg) 0 mg INHALE RQ4H WHILE AWAKE PRN PRN Reason: Shortness of Breath Docusate Sodium (Docusate Sodium 100 Mg Capsule) 100 mg PO DAILY PRN PRN Reason: Constipation Enoxaparin Sodium (Enoxaparin Sodium 40 Mg/0.4 Ml Syringe) 40 mg SUBCUT Q24H [facility] Last Admin: 03/19/22 17:15 Dose: 40 mg Piperacillin Sod/Tazobactam (Sod 4.5 gm/ Sodium Chloride) 50 mls @ 100 mls/hr IV Q6H [facility] Last Infusion: 03/20/22 05:49 Dose: Infused Multivitamins/Vitamin C (Multivitamin Tablet) 1 tab PO DAILY [facility] Ondansetron HCl (Ondansetron Hcl 4 Mg/2 Ml Vial) 4 mg IVPUSH Q8H PRN PRN Reason: Nausea and Vomiting Sodium Chloride (0.9 % Sodium Chloride Flush 3 Ml Syringe) 3 ml IVFLUSH QSHIFT [facility] Last Admin: 03/20/22 00:07 Dose: Not Given Home Medications Medication Instructions Recorded Confirmed Last Taken Type albuterol sulfate 90 mcg/actuation 1 puff inhalation Q4H PRN 03/19/22 03/19/22 03/19/22 09:00 History aerosol inhaler Shortness Of Breath Or Wheezing ascorbic acid (vitamin C) 500 mg 500 mg PO DAILY 03/19/22 03/19/22 03/19/22 09:00 History tablet (Vitamin C) calcium carbonate 600 mg calcium 600 mg PO DAILY 03/19/22 03/19/22 03/19/22 09:00 History (1,500 mg) tablet (Calcium) fluticasone propionate 50 1 spray intranasal DAILY 03/19/22 03/19/22 03/18/22 History mcg/actuation nasal spray,suspension multivitamin 1 tab PO DAILY 03/19/22 03/19/22 03/19/22 09:00 History Exam Exam Date and Time: March 20, 2022 0958 Height,Weight and Vital Signs: Height 5 ft Weight 42.184 kg Last Vital Signs Temp 98.1 F 03/19/22 21:31 Pulse 105 H 03/20/22 01:05 Resp 18 03/20/22 01:05 BP 141/93 H 03/19/22 21:31 Pulse Ox 94 03/20/22 01:05 O2 Del Method 03/20/22 01:05 O2 Flow Rate 2 03/20/22 01:05 Pertinent Lab Results Pertinent Lab Results: Laboratory Tests 03/19/22 03/19/22 03/19/22 11:22 11:22 11:22 WBC 8.5 RBC 4.69 Hgb 14.6 Hct 42.1 MCV 89.8 MCH 31.1 MCHC 34.7 RDW 12.2 Plt Count 343 MPV 8.9 L Immature Gran % (Auto) 0.2 Neut % (Auto) 57.0 Lymph % (Auto) 27.1 [place] % (Auto) 13.3 H Eos % (Auto) 1.9 Baso % (Auto) 0.5 Lymph # (Auto) 2.3 [place] # (Auto) 1.1 Eos # (Auto) 0.2 Baso # (Auto) 0.0 Abs Immat Gran (auto) 0.02 Absolute Neuts (auto) 4.8 Absolute Nucleated RBC 0.000 Nucleated RBC % (auto) 0.0 PT 13.0 INR 1.1 Sodium Potassium Chloride Carbon Dioxide Anion Gap BUN Creatinine Estim Creat Clear Calc Estimated GFR Random Glucose Lactic Acid Calcium Total Bilirubin AST ALT Alkaline Phosphatase Lactate Dehydrogenase Troponin I High Sens B-Natriuretic Peptide 18 Total Protein Albumin Carcinoembryonic Ag Influenza Type A (PCR) Influenza Type B (PCR) RSV RNA Qual (PCR) SARS-CoV-2 RNA (RT-PCR) 03/19/22 03/19/22 03/19/22 11:22 11:22 11:32 WBC RBC Hgb Hct MCV MCH MCHC RDW Plt Count MPV Immature Gran % (Auto) Neut % (Auto) Lymph % (Auto) [place] % (Auto) Eos % (Auto) Baso % (Auto) Lymph # (Auto) [place] # (Auto) Eos # (Auto) Baso # (Auto) Abs Immat Gran (auto) Absolute Neuts (auto) Absolute Nucleated RBC Nucleated RBC % (auto) PT INR Sodium Potassium Chloride Carbon Dioxide Anion Gap BUN Creatinine Estim Creat Clear Calc Estimated GFR Random Glucose Lactic Acid 1.4 Calcium Total Bilirubin AST ALT Alkaline Phosphatase Lactate Dehydrogenase Troponin I High Sens 101.3 H* B-Natriuretic Peptide Total Protein Albumin Carcinoembryonic Ag Influenza Type A (PCR) NEGATIVE Influenza Type B (PCR) NEGATIVE RSV RNA Qual (PCR) NEGATIVE SARS-CoV-2 RNA (RT-PCR) NEGATIVE 03/19/22 03/19/22 13:52 14:30 WBC RBC Hgb Hct MCV MCH MCHC RDW Plt Count MPV Immature Gran % (Auto) Neut % (Auto) Lymph % (Auto) [place] % (Auto) Eos % (Auto) Baso % (Auto) Lymph # (Auto) [place] # (Auto) Eos # (Auto) Baso # (Auto) Abs Immat Gran (auto) Absolute Neuts (auto) Absolute Nucleated RBC Nucleated RBC % (auto) PT INR Sodium 141 Potassium 3.7 Chloride 105 Carbon Dioxide 25 Anion Gap 15 BUN 7 L Creatinine 0.63 Estim Creat Clear Calc 53.0 Estimated GFR > 60 Random Glucose 98 Lactic Acid Calcium 9.6 Total Bilirubin 0.6 AST 20 ALT 18 Alkaline Phosphatase 51 Lactate Dehydrogenase 197 Troponin I High Sens 113.4 H* B-Natriuretic Peptide Total Protein 6.5 Albumin 3.8 Carcinoembryonic Ag 445.00 Influenza Type A (PCR) Influenza Type B (PCR) RSV RNA Qual (PCR) SARS-CoV-2 RNA (RT-PCR) Airway Mallampati Class: II (Caps top 4) TM Dist: >3cm Partial: Upper and Lower Heart: tachy Lungs: cta Assessment and Plan Assessment Anesthesia Assessment: Anesthesia Plan Discussed and Chart Reviewed Final Anesthetic Review Family History of Problems with Anesthesia: No History of Problems with Anesthesia: No NPO: Yes ASA Class: III (Pt with elevated trop, ekg, discussed with highway maintainer, feels pt safe to proceed, cardiology consult was submitted and withdrawn ) Final Preanesthetic Review: No Changes in Pt Med Stat, Meds/Allgs Chart Reviewed and Consent Obtained/Reviewed Patient Risk: Intermediate (Pt very active, no cardiac history, denies any CP) Procedure Risk: Intermediate Anesthetic Plan Anesthetic Plan: MAC: Disposition: Standard PACU
--- NOTE | 2022-03-20 10:32 | MHC.SHP ---
Pre-Procedural Eval Section A Date of Service: 03/20/22 The patient is an INPATIENT: Yes Changes since office visit: No Cold of Flu in the past 2 weeks, No New Medical Problems, No Changes in Medication and No Patient answered all questions The History & Physical has been completed within 30 days and I have reviewed it.: Yes Section B Chief Complaint: Cough, SOB Allergies: Allergies Allergy/AdvReac Type Severity Reaction Status Date / Time No Known Allergies Allergy Verified 09/18/20 11:56 Plan Diagnosis/Plan: Unchanged I have reviewed the history and physical and performed a pertinent physical examination on my patient. No changes have occurred unless specified. Time Spent With Patient Time: Total time managing care of this patient today ____ minutes.
--- NOTE | 2022-03-20 11:34 | PC.NURSE ---
9am meds not given as NPO and having bronchoscopy this am
--- NOTE | 2022-03-20 12:00 | PC.NURSE ---
no morning medications give, pt off unit at this time having bronchcoscopy
--- NOTE | 2022-03-20 12:17 | PC.NURSE ---
attempted to call report to floor, RN busy, will re-attempt later
--- NOTE | 2022-03-20 14:26 | PM.OP ---
Brief Operative Note Date of Service: 03/20/22 Pre-op diagnosis: Lung cancer Post-op diagnosis: same Procedure: Flexible bronchoscopy performed under general anesthesia with patient intubated for the procedure. bronchoscope was advanced through the tracheobronchial tree with abnormal looking friable mucosa with multiple subcutaneous nodule starting at main chelo level. Left mainstem bronchus and lobar bronchi patent. Right mainstem bronchus significantly narrowed by abnormal mucosa and extrinsic compression, unable to advance bronchoscope past take of right upper bronchus. Forceps biopsies performed at main chelo level with 5 sample sent for pathologic testing. Patient tolerated the procedure well and was returned to PACU in stable condition. Surgeon: Byron Mendoza MD Anesthesia: GETA Was an Independent Sales Representative used for this Procedure?: No Estimated blood loss (mL): 0 Pathology: other ( As above) Condition: stable Disposition: PACU
--- NOTE | 2022-03-20 16:12 | HO.PM.IMPN ---
Subjective Subjective Date of Service: 03/20/22 Interval History: possible Post-obstructive pneumonia, Review of Systems Patient still seems short of breath, has cough, denies any chest pain or nausea vomiting or abdominal pain. Physical Exam Vital Signs: Vital Signs: Last Vital Signs Temp 98.3 F 03/20/22 15:23 Pulse 116 H 03/20/22 15:23 Resp 20 03/20/22 15:23 BP 119/77 03/20/22 15:23 Pulse Ox 94 03/20/22 15:23 O2 Del Method 03/20/22 15:23 O2 Flow Rate 10 03/20/22 15:23 FiO2 40 03/20/22 13:39 BMI result Body Mass Index 18.1 Appearance: Alert.? Oriented X3.? not in distress.?. cvs: rrr, [id number] , no murmur res: air entry diminshed right>left. rhochii abd: no rebound or guarding ,nt, bs present. ext pulses present , no cyanosis . neuro: axo3 , nonfocal. Objective Data Active Medications Acetaminophen (Acetaminophen 325 Mg Tablet) 650 mg PO Q6H PRN PRN Reason: Pain, Mild (Pain Scale 1-3) Ascorbic Acid (Ascorbic Acid 500 Mg Tablet) 500 mg PO DAILY [facility] Last Admin: 03/20/22 12:02 Dose: Not Given Documented By: LEATHA Non-Admin Reason: off unit: bronch Calcium Carbonate (Calcium Carbonate 500 Mg Tablet) 500 mg PO DAILY [facility] Last Admin: 03/20/22 12:02 Dose: Not Given Documented By: LEATHA Non-Admin Reason: off unit: bronch Albuterol Sulfate 2.5 mg/ (Ipratropium [place] 0.5 mg) 0 mg INHALE RQ4H WHILE AWAKE PRN PRN Reason: Shortness of Breath Docusate Sodium (Docusate Sodium 100 Mg Capsule) 100 mg PO DAILY PRN PRN Reason: Constipation Enoxaparin Sodium (Enoxaparin Sodium 40 Mg/0.4 Ml Syringe) 40 mg SUBCUT Q24H [facility] Last Admin: 03/19/22 17:15 Dose: 40 mg Documented By: AMINATA Piperacillin Sod/Tazobactam (Sod 4.5 gm/ Sodium Chloride) 50 mls @ 100 mls/hr IV Q6H [facility] Last Admin: 03/20/22 14:18 Dose: Not Given Documented By: CHELA Non-Admin Reason: Not In Room Multivitamins/Vitamin C (Multivitamin Tablet) 1 tab PO DAILY [facility] Last Admin: 03/20/22 12:03 Dose: Not Given Documented By: LEATHA Non-Admin Reason: off unit: bronch Ondansetron HCl (Ondansetron Hcl 4 Mg/2 Ml Vial) 4 mg IVPUSH Q8H PRN PRN Reason: Nausea and Vomiting Sodium Chloride (0.9 % Sodium Chloride Flush 3 Ml Syringe) 3 ml IVFLUSH QSHIFT [facility] Last Admin: 03/20/22 11:47 Dose: Not Given Documented By: LEATHA Non-Admin Reason: Med Not Available Labs 03/19/22 11:22 03/19/22 13:52 Labs: Laboratory Results - last 24 hr 03/19/22 14:30 Troponin I High Sens 113.4 H* Microbiology Microbiology Results: Microbiology 03/19/22 11:32 Blood Culture - Preliminary Blood - Venous No growth after 24 hours. 03/19/22 11:26 Blood Culture - Preliminary Blood - Venous No growth after 24 hours. Assessment and Plan (1) Obstructive pneumonia: Status: Acute (2) Abnormal CT scan, chest: Status: Acute (3) Acute respiratory failure with hypoxia: Status: Acute (4) Lung mass: Status: Acute Plan 72-year-old female not on chronic home meds with no significant PMH except for chronic tachycardia and a hysterectomy 30+ years ago who presents to the ED with worsening cough and shortness of breath for the past month. CT of chest suggestive lung malignancy and postobstructive pneumonia.? Patient admitted to hospital for further workup and management of potential lung malignancy and postobstructive pneumonia. 1.Acute hypoxemic respiratory failure secondary to Post-obstructive pneumonia Likely secondary to lung malignancy Failed outpatient therapy with levofloxacin and azithromycin Oncology consult noted -need bronchoscopy for diagnosis Pulmonology -s/p bronch today-pathology pendin Zosyn 4.5g q6, day 1/7,DuoNebs q4 prn,continue oxygen 2.Tachycardia, chronic Patient states she has ?always? had an elevated HR of over 100 Hold on meds for now Monitor for palpitations, HR >120 3.Elevated troponin Troponin of 101.3, repeat 113.4 Likely due to demand ischemia Patient denies chest pain/pressure EKG shows no acute ischemic changes will add echo . DVT Prophylaxis: Lovenox ongoing hospitilsation need: treatment of?postobstructive pneumonia with IV ABX and further workup and evaluation potential lung malignancy. Time Spent With Patient Time: Total time managing care of this patient today ____ minutes. Quality Stroke Does the patient have a stroke diagnosis?: No VTE Prior VTE?: No VTE Risk Level:: Medical - moderate - high VTE Device Contraindication: Treatment Not Indicated VTE Drug Contraindication: N/A - Med Ordered
--- NOTE | 2022-03-20 16:15 | MHC.CLN ---
NUTRITION CONSULT FOR WEIGHT LOSS. PATIENT STATED THAT HAS LOST 7# IN PAST 2-3 WEEKS. ATTRIBUTES WEIGHT LOSS TO UPSET STOMACH FROM ANTIBIOTIC. USUAL BODY WEIGHT IS 100#. TRIGGERS SIGNIFICANT WEIGHT LOSS -7.5% X 3 WEEKS. TAKES SUPPLEMENT AT HOME. ADDING ENSURE TID. PROVIDES ADDITIONAL 1050 KCALS, 60 G PROTEIN. SEE NUTRITION ASSESSMENT 03/20/22.
[2022-03-20] MEDS: Enoxaparin Sodium 40 MG/0.4 ML SYRINGE SUBCUT (16:41)
[2022-03-20] MEDS: 0.9 % Sodium Chloride Flush 3 ML SYRINGE IVFLUSH ×2 (17:15→23:32)
[2022-03-21 03:57] VITALS: BP 123/72; PULSE 112; RESP 18; TEMP 36.9; O2SAT 97
[2022-03-21 07:39] VITALS: BP 119/72; PULSE 106; RESP 16; TEMP 37.3; O2SAT 97
[2022-03-21] MEDS: Multivitamin TABLET 1 TAB PO (07:47)
[2022-03-21] MEDS: 0.9 % Sodium Chloride Flush 3 ML SYRINGE IVFLUSH ×2 (07:48→17:07)
[2022-03-21] MEDS: Ascorbic Acid 500 MG TABLET PO (07:48)
[2022-03-21 10:04] VITALS: PULSE 113; PULSE 114; PULSE 122; O2SAT 81; O2SAT 88; O2SAT 89; O2SAT 92; O2SAT 94
--- NOTE | 2022-03-21 10:19 | MHC.CM.PN ---
PER HOSPITALIST STUART PT WILL D/C HOME LATER TODAY W/NEW HOME O2 FROM [facility], HOME O2 EVAL PENDING W/ FOR TRANSPORT
--- NOTE | 2022-03-21 10:33 | P.DS_ITS ---
DS: Providers Provider Date of Service: 03/21/22 Date of admission: 03/19/22 15:14 Primary care physician: Ariel Whitaker MD Consults: 03/19/22 14:16 Consult to Hematology / Oncology Stat Consulting Provider: Stella Farley Reason for consultation: New Lung mass with hypoxia Has provider been notified: Yes 03/19/22 15:18 Consult to Pulmonology Routine Consulting Provider: Byron Mendoza Reason for consultation: SOB d/t obstruction/possible lung cancer Has provider been notified: No 03/21/22 08:30 Consult to Cardiology Routine Consulting Provider: [facility] [place] [facility] Reason for consultation: elevated troponins Has provider been notified: No DS: Diagnosis Discharge Diagnosis (1) Obstructive pneumonia: Status: Acute (2) Abnormal CT scan, chest: Status: Acute (3) Acute respiratory failure with hypoxia: Status: Acute (4) Lung mass: Status: Acute (5) Elevated troponin: Status: Acute (6) Emphysema lung: Status: Acute DS: Summary Status at Discharge Cognitive/behavioral status at discharge: 72-year-old female not on chronic home meds with no significant PMH except for chronic tachycardia and a hysterectomy 30+ years ago who presents to the ED with worsening cough and shortness of breath for the past month and weight loss.? CT chest without contrast performed 03/19/2022 shows moderate emphysema, lymphadenopathy/infiltrative tumor around region of chelo and mainstem bronchus with diffusely thickened right mainstem bronchus.? Septal thickening and nodularity within right upper lobe irregular nodule in the lateral right upper lobe measuring 0.7 x 1.2 cm.? A growing irregular nodule in contact with lateral pleura in right upper lobe measuring 1.4 cm.? Interval worsening of consolidative opacities in the right lower lobe possibly due to combination of neoplasm and pneumonia.? Persistent small right pleural effusion.? A right axillary lymph node has increased in size and measures 1.2 cm.? Subcarinal lymphadenopathy also appears to be worse.? No evidence of skeletal metastasis. LDH is normal but CEA is elevated. Hospital course: Patient was admitted for acute hypoxia possible secondary to pneumonia and possible malignancy -patient was started on IV antibiotics, hypoxia seems to be improving, also seen by Pulmonary and bronchoscopy was done, biopsy sent and needs to be followed up outpatient with Pulmonary and Oncology for further workup. Before discharge home oxygen evaluation was done and patient qualifies for home oxygen 3 L with rest and 4 L with exertion. Patient initial CT scan shows emphysema-continue oxygen/inhalers . Patient has mild elevated troponin(asymptomatic-no chest pain) possibly related to hypoxia and pneumonia: Further workup out patiently . Follow-up with Cardiology outpatient. Patient was advised to complete her p.o. antibiotics, and follow-up with Pulmonary and Oncology out patiently Plan: Please complete course of antibiotic, continue oxygen. Patient is to follow up with Pulmonary and Oncology outpatient for for biopsy follow-up results and further workup and treatment . Follow-up with Cardiology also for further workup outpatient. Above management discussed with patient and her in detail length at bedside, assessment and plan coordination time spent 50 minute. Time Spent with Patient Time attestation: Total time managing care of this patient today ____ minutes. Discharge coordination time: Greater than 30 minutes Quality: Safe Use of Opioids Does Pt have an Active Cancer Diagnosis on the Problem List?: No Quality: Stroke Does the patient have a stroke diagnosis?: No Physical Exam Vital Signs: Vital Signs: Last Vital Signs Temp 99.2 F 03/21/22 07:39 Pulse 106 H 03/21/22 07:39 Resp 16 03/21/22 07:39 BP 119/72 03/21/22 07:39 Pulse Ox 97 03/21/22 07:39 O2 Del Method 03/21/22 07:39 O2 Flow Rate 5 03/21/22 07:39 FiO2 40 03/20/22 13:39 BMI result Body Mass Index 18.1 Appearance: Alert.? Oriented X3.? not in distress.? Eyes: Pupils equal, round and reactive to light.? Sclera nonicteric.? ENT: Pharynx normal.? Moist mucous membranes. cvs: rrr, [id number] . res: air entry fair ,no rales or wheezin abd: no rebound or guarding ,nt, bs present. ext pulses present , no cyanosis . neuro: axo3 , nonfocal. DS: Data Data Completed and Pending Pending studies at discharge: Pending at discharge 03/20/22 10:56 Surgical [PTH] Routine Labs on day of discharge: Preliminary micro results at discharge 03/19/22 11:32 Blood Culture - Preliminary Blood - Venous No growth after 24 hours. 03/19/22 11:26 Blood Culture - Preliminary Blood - Venous No growth after 24 hours. Imaging Chest x-ray: Radiologist's impression: ITS Impressions Chest CT 03/19/22 11:41 IMPRESSION: * Moderate pulmonary emphysema. * Significant interval worsening of irregular consolidative opacity in right lower lobe. This could represent combination of infiltrative tumor and pneumonia with persistent small right pleural effusion. Also, there is worsening nodularity in the right upper lobe and septal thickening which could reflect presence of obstructed lymphatics and/or lymphangitic tumor spread. The bronchial antoine are thickened and the infiltrative tumor or lymphadenopathy compresses the bronchi at the right hilum and at the central left lower lobe. The masslike opacity in the left lower lobe is similar in appearance compared to 02/26/2022 and could represent another site of neoplastic infiltration. Overall, there is mild worsening of mediastinal lymphadenopathy and right axillary lymphadenopathy compared to 02/26/2022. Recommend further workup and tissue sampling. * No evidence of skeletal metastasis. That Fleischner Society guidelines should not be applied to this patient with suspected severe infiltrative neoplasm and extensive lymphadenopathy. There should be no delay in further diagnostic workup. Discharge Plan Discharge Anticipated Discharge Date/Time: 03/21/22 10:18 Patient Disposition: Home, Self-Care Discharge Diagnosis: post obstructive pneumonia , acute hypoxemic respiratory failure, elevated troponins, possible lung maliganancy, emphysema Referrals: Ariel Whitaker MD [Primary Care Provider] - 1 Week Discharge Medications: New amoxicillin-pot clavulanate 875-125 mg tablet 1 tab PO Q12H Qty: 14 0RF Continued albuterol sulfate 90 mcg/actuation HFA aerosol inhaler 1 puff inhalation Q4H PRN (Reason: Shortness Of Breath Or Wheezing) fluticasone propionate 50 mcg/actuation spray,suspension 1 spray intranasal DAILY Rx Instructions: use 1 spray into each nostril multivitamin Tablet 1 tab PO DAILY calcium carbonate [Calcium 600] 600 mg calcium (1,500 mg) Tablet 600 mg PO DAILY ascorbic acid (vitamin C) [Vitamin C] 500 mg Tablet 500 mg PO DAILY Discharge Orders: Discharge Order (Routine); Ordered 03/21/22 Ordered By: Matteo Coates Diet: Advance to usual diet Activity on Discharge: As tolerated Stand Alone Forms: Patient Portal Discharge page Care Plan Goals: Patient was admitted for acute hypoxia possible secondary to pneumonia and possible malignancy -patient was started on IV antibiotics, hypoxia seems to be improving, also seen by Pulmonary and bronchoscopy was done, biopsy sent and needs to be followed up outpatient with Pulmonary and Oncology for further workup. Before discharge home oxygen evaluation was done and patient qualifies for home oxygen 3 L with rest and 4 L with exertion. Patient initial CT scan shows emphysema so possibly has COPD. Patient has mild elevation of heart enzymes possibly related to hypoxia and pneumonia: Further workup out patiently . Follow-up with Cardiology outpatient. Patient was advised to complete her p.o. antibiotics, and follow-up with Pulmonary and Oncology out patiently. Health Concerns: As above. Plan of Treatment: As above. Assessment: As above.
--- NOTE | 2022-03-21 10:34 | PM.CNCAR ---
History of Present Illness History of Present Illness Date of Service: 03/21/22 Requesting physician: Matteo Coates Chief complaint: Cough, SOB Narrative: 72-year-old female with history of tobacco abuse who is presenting for shortness of breath and obstructive pneumonia. There is concern for lung cancer currently. She has been noticed to have sinus tachycardia. CTA was done which did not show any pulmonary embolism. She has mildly elevated troponin levels. No chest discomfort. Shortness of breath was due to pneumonia and lung mass. She is currently on supplemental oxygen. She has lost 7 lb previously. [facility] Social History Social History Household Members: [facility] Do you presently have visiting nurse or other home services: No Alcohol intake: former Patient Tobacco Use Status: Former Tobacco user Tobacco use type: Cigarette service: No Current occupational status: retired [employer] Allergies Allergy/AdvReac Type Severity Reaction Status Date / Time No Known Allergies Allergy Verified 09/18/20 11:56 Active Medications: Current Medications Acetaminophen (Acetaminophen 325 Mg Tablet) 650 mg PO Q6H PRN PRN Reason: Pain, Mild (Pain Scale 1-3) Ascorbic Acid (Ascorbic Acid 500 Mg Tablet) 500 mg PO DAILY [facility] Last Admin: 03/21/22 07:48 Dose: 500 mg Calcium Carbonate (Calcium Carbonate 500 Mg Tablet) 500 mg PO DAILY [facility] Last Admin: 03/21/22 07:47 Dose: 500 mg Albuterol Sulfate 2.5 mg/ (Ipratropium [place] 0.5 mg) 0 mg INHALE RQ4H WHILE AWAKE PRN PRN Reason: Shortness of Breath Docusate Sodium (Docusate Sodium 100 Mg Capsule) 100 mg PO DAILY PRN PRN Reason: Constipation Enoxaparin Sodium (Enoxaparin Sodium 40 Mg/0.4 Ml Syringe) 40 mg SUBCUT Q24H [facility] Last Admin: 03/20/22 16:41 Dose: 40 mg Multivitamins/Vitamin C (Multivitamin Tablet) 1 tab PO DAILY [facility] Last Admin: 03/21/22 07:47 Dose: 1 tab Ondansetron HCl (Ondansetron Hcl 4 Mg/2 Ml Vial) 4 mg IVPUSH Q8H PRN PRN Reason: Nausea and Vomiting Sodium Chloride (0.9 % Sodium Chloride Flush 3 Ml Syringe) 3 ml IVFLUSH QSHIFT [facility] Last Admin: 03/21/22 07:48 Dose: 3 ml Home Medications Medication Instructions Recorded Confirmed Last Taken Type albuterol sulfate 90 mcg/actuation 1 puff inhalation Q4H PRN 03/19/22 03/19/22 03/19/22 09:00 History aerosol inhaler Shortness Of Breath Or Wheezing ascorbic acid (vitamin C) 500 mg 500 mg PO DAILY 03/19/22 03/19/22 03/19/22 09:00 History tablet (Vitamin C) calcium carbonate 600 mg calcium 600 mg PO DAILY 03/19/22 03/19/22 03/19/22 09:00 History (1,500 mg) tablet (Calcium) fluticasone propionate 50 1 spray intranasal DAILY 03/19/22 03/19/22 03/18/22 History mcg/actuation nasal spray,suspension multivitamin 1 tab PO DAILY 03/19/22 03/19/22 03/19/22 09:00 History Physical Exam Vital Signs: Vital Signs: Last Vital Signs Temp 99.2 F 03/21/22 07:39 Pulse 106 H 03/21/22 07:39 Resp 16 03/21/22 07:39 BP 119/72 03/21/22 07:39 Pulse Ox 97 03/21/22 07:39 O2 Del Method 03/21/22 07:39 O2 Flow Rate 5 03/21/22 07:39 FiO2 40 03/20/22 13:39 BMI result Body Mass Index 18.1 GENERAL APPEARANCE: in no acute distress, thin. NECK: no carotid bruit, no jugular venous distention. SKIN: no suspicious lesions, warm and dry. HEART: no murmurs, regular rate and rhythm. LUNGS: Mild bilateral wheezes. ABDOMEN: soft, nontender. EXTREMITIES: no edema. PERIPHERAL PULSES: equal. NEUROLOGIC: No gross deficits, AAO X 3 Objective Labs and Meds 03/19/22 11:22 03/19/22 13:52 Assessment and Plan (1) Elevated troponin: Status: Acute Plan 72-year-old female who is presenting for pneumonia and concern for lung cancer. She is being worked up for that. She has mildly elevated troponin levels. No chest discomfort or concern for acute coronary syndrome. Likely a type 2 event in the setting of infection. She can have further workup as outpatient including echocardiography. Can be discharged home and can continue workup for lung cancer. Thank you for allowing me to participate in the care of your patient. Please feel free to contact me if you have any questions. Time Spent With Patient Time: Total time managing care of this patient today ____ minutes. Procedures Date of Service Date of Service: 03/21/22
[2022-03-21] MEDS: Amoxicillin/Potassium Clav 875 MG TABLET PO (10:40)
--- NOTE | 2022-03-21 14:33 | HO.PM.IMPN ---
Subjective Subjective Date of Service: 03/22/22 Interval History: Dysphagia Review of Systems Patient is saying she is having trouble swallowing Denies any chest pain or abdominal pain or fever or chills Physical Exam Vital Signs: Vital Signs: Last Vital Signs Temp 99.2 F 03/21/22 07:39 Pulse 106 H 03/21/22 07:39 Resp 16 03/21/22 07:39 BP 119/72 03/21/22 07:39 Pulse Ox 97 03/21/22 07:39 O2 Del Method 03/21/22 07:39 O2 Flow Rate 5 03/21/22 07:39 FiO2 40 03/20/22 13:39 BMI result Body Mass Index 18.1 Appearance: Alert.? Oriented X3.? not in distress.? Eyes: Pupils equal, round and reactive to light.? Sclera nonicteric.? ENT: Pharynx normal.? Moist mucous membranes. cvs: rrr, [id number] . res: air entry fair ,no rales or wheezin abd: no rebound or guarding ,nt, bs present. ext pulses present , no cyanosis . neuro: axo3 , nonfocal. Objective Data Active Medications Acetaminophen (Acetaminophen 325 Mg Tablet) 650 mg PO Q6H PRN PRN Reason: Pain, Mild (Pain Scale 1-3) Amoxicillin/Clavulanate Potassium (Amoxicillin/Potassium Clav 2,000 Mg/50 Ml Bottle) 875 mg PO BID [facility] Ascorbic Acid (Ascorbic Acid 500 Mg Tablet) 500 mg PO DAILY [facility] Last Admin: 03/21/22 07:48 Dose: 500 mg Documented By: MAURICE Calcium Carbonate (Calcium Carbonate 500 Mg Tablet) 500 mg PO DAILY [facility] Last Admin: 03/21/22 07:47 Dose: 500 mg Documented By: MAURICE Albuterol Sulfate 2.5 mg/ (Ipratropium [place] 0.5 mg) 0 mg INHALE RQ4H WHILE AWAKE PRN PRN Reason: Shortness of Breath Docusate Sodium (Docusate Sodium 100 Mg Capsule) 100 mg PO DAILY PRN PRN Reason: Constipation Enoxaparin Sodium (Enoxaparin Sodium 40 Mg/0.4 Ml Syringe) 40 mg SUBCUT Q24H [facility] Last Admin: 03/20/22 16:41 Dose: 40 mg Documented By: FAUSTO Amino Acids/Electrolytes/Dextrose (Clinimix E 4.25%-10%) 720 mls @ 30 mls/hr IV DAILY@1800 [facility] Stop: 03/22/22 17:59 Multivitamins/Vitamin C (Multivitamin Tablet) 1 tab PO DAILY [facility] Last Admin: 03/21/22 07:47 Dose: 1 tab Documented By: MAURICE Ondansetron HCl (Ondansetron Hcl 4 Mg/2 Ml Vial) 4 mg IVPUSH Q8H PRN PRN Reason: Nausea and Vomiting Sodium Chloride (0.9 % Sodium Chloride Flush 3 Ml Syringe) 3 ml IVFLUSH QSHIFT [facility] Last Admin: 03/21/22 07:48 Dose: 3 ml Documented By: MAURICE Labs 03/19/22 11:22 03/19/22 13:52 Microbiology Microbiology Results: Microbiology 03/19/22 11:32 Blood Culture - Preliminary Blood - Venous No growth after 48 hours. 03/19/22 11:26 Blood Culture - Preliminary Blood - Venous No growth after 48 hours. Assessment and Plan (1) Obstructive pneumonia: Status: Acute (2) Abnormal CT scan, chest: Status: Acute (3) Acute respiratory failure with hypoxia: Status: Acute (4) Lung mass: Status: Acute Plan 72-year-old female not on chronic home meds with no significant PMH except for chronic tachycardia and a hysterectomy 30+ years ago who presents to the ED with worsening cough and shortness of breath for the past month. CT of chest suggestive lung malignancy and postobstructive pneumonia.? Patient admitted to hospital for further workup and management of potential lung malignancy and postobstructive pneumonia. 1.Acute hypoxemic respiratory failure secondary to Post-obstructive pneumonia Likely secondary to lung malignancy Failed outpatient therapy with levofloxacin and azithromycin Oncology consult noted -need bronchoscopy for diagnosis Pulmonology -s/p bronch today-pathology pendin Zosyn 4.5g q6, day 03/14,DuoNebs q4 prn,continue oxygen 2.Tachycardia, chronic Patient states she has ?always? had an elevated HR of over 100 Hold on meds for now Monitor for palpitations, HR >120 3.Elevated troponin Troponin of 101.3, repeat 113.4 Likely due to demand ischemia Patient denies chest pain/pressure EKG shows no acute ischemic changes outpatient cardiac workup 4. Dysphagia: ct imaging reviewed with GI:extrinsic esophageal compression from her lung mass. GI eval added , ppn also added swlalow eval DVT Prophylaxis: Lovenox ongoing hospitilsation need: treatment of?postobstructive pneumonia with IV ABX and further workup and evaluation potential lung malignancy, also dysphagia -need possible peg tube,ppn for now Time Spent With Patient Time: Total time managing care of this patient today ____ minutes. Quality Stroke Does the patient have a stroke diagnosis?: No VTE Prior VTE?: No VTE Risk Level:: Medical - moderate - high VTE Device Contraindication: Treatment Not Indicated VTE Drug Contraindication: N/A - Med Ordered
[2022-03-21 15:07] VITALS: BP 120/67; PULSE 119; RESP 18; TEMP 37; O2SAT 95
[2022-03-21 15:26] LABS: Albumin Level 3.5 g/dL (3.5-5.0); Anion Gap 14 (12-20); Blood Urea Nitrogen 12 mg/dL (9-16); Carbon Dioxide 28 mmol/L (22-29); Chloride 102 mmol/L (96-108); Creatinine Clr Calc Pharmacy 46.3; Estimated Glomerular Filt Rate > 60; Glucose Random 170 mg/dL (60-115); Magnesium 1.8 mg/dL (1.6-2.6); Phosphorus 2.5 mg/dL (2.7-4.5); Potassium 3.5 mmol/L (3.3-5.1); Sodium 140 mmol/L (135-145); Triglycerides 121 mg/dL
[2022-03-21] MEDS: Enoxaparin Sodium 40 MG/0.4 ML SYRINGE SUBCUT (17:07)
--- NOTE | 2022-03-21 18:53 | HO.POSTANES ---
Post Anesthesia Evaluation Post Anesthesia Evaluation Vital Signs: Vital Signs Temp Pulse Resp BP Pulse Ox O2 Del Method O2 Flow Rate 03/21/22 15:07 98.6 F 119 H 18 120/67 95 Nasal Cannula 4.0 03/21/22 07:39 99.2 F 106 H 16 119/72 97 Nasal Cannula 5 Anesthesia: General Endotracheal-GETA Mental Status: Awake Pain Control: Satisfactory Nausea/Vomiting: None Hydration: Adequate Anesthesia-Related Issues: No Anes. Related Issues
--- NOTE | 2022-03-21 19:06 | PM.GICN ---
History of Present Illness Data of Consult Service Date: 03/21/22 Requesting physician: Matteo Coates Primary Care Provider: Ariel Whitaker MD HPI Reason for consult: dysphagia 72-year-old female w hx of hysterectomy, and smoking who I am seeing for assessment for dysphagia. She was admitted initially with worsening cough and shortness of breath for the past month and dx by PCP with pneumonia, due to worsening of her sx she was sent to ED> She had imaging which revealed infiltrative tumour with compression of bronchi at hilum and left lower lobe along with mediastinal and axillary lymphadenopathy. She then had bronchoscopy with bx taken. Along with above sx she also mentions worsening swallowing for last 2 weeks, with intermittent difficulty swallowing fluids and solids, including tablets. She has a fair appetite, lost maybe 7# these last few weeks. Patient denies any other complaints.? No chest pain/pressure, palpitations.? No hematemesis.? Denies fever, chills, nausea, vomiting. Review of Systems Review of Systems: Constitutional : + Weight loss, No Fever, No Chills ENT/Mouth : No sore throat, No Rhinorrhea Eyes: No Swelling, No Redness Cardiovascular : No Chest Pain, + SOB, No Edema Respiratory : No Cough, No Sputum, No Wheezing Gastrointestinal : see HPI Genitourinary : NO Dysuria, No Urinary Frequency, No Hematuria, No Urgency Musculoskeletal : No joint pain, No Myalgias, No Joint Swelling Skin : No Skin Lesions, No rash Neuro : + Weakness, No Numbness, No Dizziness, No Headache Psych : No Anxiety/Panic, No Depression Heme/Lymph: No Bruising, No Lymphadenopathy Endocrine : No Polyuria, No Polydipsia All other systems reviewed and are negative. [facility] Family History Pertinent family history: no FH of lung cancer or dysphagia Social History Social History Household Members: Spouse Housing: Condominium Do you presently have visiting nurse or other home services: No Alcohol intake: former Patient Tobacco Use Status: Former Tobacco user Tobacco use type: Cigarette service: No Current occupational status: retired [employer] Allergies Allergy/AdvReac Type Severity Reaction Status Date / Time No Known Allergies Allergy Verified 09/18/20 11:56 Active Medications: Current Medications Acetaminophen (Acetaminophen 325 Mg Tablet) 650 mg PO Q6H PRN PRN Reason: Pain, Mild (Pain Scale 1-3) Amoxicillin/Clavulanate Potassium (Amoxicillin/Potassium Clav 2,000 Mg/50 Ml Bottle) 875 mg PO BID [facility] Ascorbic Acid (Ascorbic Acid 500 Mg Tablet) 500 mg PO DAILY [facility] Last Admin: 03/21/22 07:48 Dose: 500 mg Calcium Carbonate (Calcium Carbonate 500 Mg Tablet) 500 mg PO DAILY [facility] Last Admin: 03/21/22 07:47 Dose: 500 mg Albuterol Sulfate 2.5 mg/ (Ipratropium [place] 0.5 mg) 0 mg INHALE RQ4H WHILE AWAKE PRN PRN Reason: Shortness of Breath Docusate Sodium (Docusate Sodium 100 Mg Capsule) 100 mg PO DAILY PRN PRN Reason: Constipation Enoxaparin Sodium (Enoxaparin Sodium 40 Mg/0.4 Ml Syringe) 40 mg SUBCUT Q24H [facility] Last Admin: 03/21/22 17:07 Dose: 40 mg Amino Acids/Electrolytes/Dextrose (Clinimix E 4.25%-10%) 720 mls @ 30 mls/hr IV DAILY@1800 [facility] Stop: 03/22/22 17:59 Multivitamins/Vitamin C (Multivitamin Tablet) 1 tab PO DAILY [facility] Last Admin: 03/21/22 07:47 Dose: 1 tab Ondansetron HCl (Ondansetron Hcl 4 Mg/2 Ml Vial) 4 mg IVPUSH Q8H PRN PRN Reason: Nausea and Vomiting Sodium Chloride (0.9 % Sodium Chloride Flush 3 Ml Syringe) 3 ml IVFLUSH QSHIFT [facility] Last Admin: 03/21/22 17:07 Dose: 3 ml Home Medications Medication Instructions Recorded Confirmed Last Taken Type albuterol sulfate 90 mcg/actuation 1 puff inhalation Q4H PRN 03/19/22 03/19/22 03/19/22 09:00 History aerosol inhaler Shortness Of Breath Or Wheezing ascorbic acid (vitamin C) 500 mg 500 mg PO DAILY 03/19/22 03/19/22 03/19/22 09:00 History tablet (Vitamin C) calcium carbonate 600 mg calcium 600 mg PO DAILY 03/19/22 03/19/22 03/19/22 09:00 History (1,500 mg) tablet (Calcium) fluticasone propionate 50 1 spray intranasal DAILY 03/19/22 03/19/22 03/18/22 History mcg/actuation nasal spray,suspension multivitamin 1 tab PO DAILY 03/19/22 03/19/22 03/19/22 09:00 History Physical Exam Vital Signs: Vital Signs: Last Vital Signs Temp 98.6 F 03/21/22 15:07 Pulse 119 H 03/21/22 15:07 Resp 18 03/21/22 15:07 BP 120/67 03/21/22 15:07 Pulse Ox 95 03/21/22 15:07 O2 Del Method 03/21/22 15:07 O2 Flow Rate 4.0 03/21/22 15:07 FiO2 40 03/20/22 13:39 BMI result Body Mass Index 18.1 EXAM: GENERAL: The patient is thin VITAL SIGNS:see workflow HEENT: Nonicteric sclerae, PERRLA, EOMI. Oropharynx clear. Moist mucous membranes. Conjunctivae appear well perfused. No thyroid mass. CHEST: Chest wall is nontender. HEART: Regular rate and rhythm without murmurs. LUNGS: bronchial breathing with rhonchi ABDOMEN: Soft, positive bowel sounds, nontender, no organomegaly.no flank tenderness SKIN: No rash, no excessive bruising, petechiae, or purpura. NEUROLOGIC: Cranial nerves II-XII intact without motor/sensory deficit. psych--nml affect Results Labs 03/19/22 11:22 03/21/22 14:44 Labs: BMP 03/21/22 14:44 Sodium 140 Potassium 3.5 Chloride 102 Carbon Dioxide 28 BUN 12 Creatinine 0.72 Calcium 9.0 D Liver Function 03/21/22 Range/Units 14:44 Albumin 3.5 (3.5-5.0) g/dL Microbiology Microbiology Results: Microbiology 03/19/22 11:32 Blood - Venous Blood Culture - Preliminary No growth after 48 hours. 03/19/22 11:26 Blood - Venous Blood Culture - Preliminary No growth after [address] scan - chest: Attestation: I personally reviewed and interpreted this imaging study as follows: (extrinsic compression of esophgaus in distal third part with dilated proximal esophagus, masses and LN noted) Assessment and Plan (1) Lung mass: Status: Acute (2) Dysphagia: Qualifiers: Dysphagia type: other dysphagia Qualified Code(s): R13.19 - Other dysphagia Status: Acute Plan 1/ Dysphagia seems to be due to extrinsic esophageal compression from her lung mass. Limited benefit in my opinion from EGD or esophageal stent. Given she is clinically malnourished consideration can be given to supplemental nutrition. She swallowed a glass of water at my prompting in front of me without issues but I told her to tske her time and not clark. PLAN: 1/ Discuss with IR if G tube can be placed, otherwise surgical assessment for probable surgically placed G tube, other option is TPN. Lung biopsies are awaited and will guide for more specific treatment hopefully e.g XRT, chemo etc 2/ would keep on soft or clear diet for the meantime, educated to sip slowly on liquids incl protein drinks etc --change meds to liquid if possible, Time Spent With Patient Time: Total time managing care of this patient today ____ minutes. Procedures Date of Service Date of Service: 03/21/22
[2022-03-21 19:19] VITALS: BP 139/83; PULSE 113; RESP 18; TEMP 37.3; O2SAT 96
[2022-03-22 04:00] VITALS: BP 138/82; PULSE 110; RESP 20; TEMP 36.1; O2SAT 93
[2022-03-22] MEDS: 0.9 % Sodium Chloride Flush 3 ML SYRINGE IVFLUSH (07:48)
[2022-03-22 07:59] VITALS: BP 153/91; PULSE 107; RESP 14; TEMP 36.6; O2SAT 93
[2022-03-22 08:50] LABS: Albumin Level 3.6 g/dL (3.5-5.0); Anion Gap 14 (12-20); Blood Urea Nitrogen 7 mg/dL (9-16); Calcium 8.9 mg/dL (8.4-10.2); Carbon Dioxide 29 mmol/L (22-29); Chloride 102 mmol/L (96-108); Creatinine Clr Calc Pharmacy 56.5; Estimated Glomerular Filt Rate > 60; Glucose Random 128 mg/dL (60-115); Magnesium 1.8 mg/dL (1.6-2.6); Phosphorus 2.7 mg/dL (2.7-4.5); Potassium 3.6 mmol/L (3.3-5.1); Sodium 141 mmol/L (135-145)
--- NOTE | 2022-03-22 11:52 | MHC.CM.PN ---
PER HOSPITALIST PT DISCHARGING AMA, FAMILY AT BEDSIDE AND WILL TRANSPORT
== END 2022-03-22 12:12 | disposition left against medical advice (07) | DRG 180 ==
LOC: HO.ED 14:21 → HO.EDOVER 15:27 → HO.S3 03-20 12:05
PROVIDERS: Internal Medicine Pulmonary Disease; Admitting Provider Student in an Organized Health Care Education/Training Program; Emergency Provider Student in an Organized Health Care Education/Training Program; PCP Internal Medicine; Visit Provider Internal Medicine
PROC: 0BJ08ZZ Inspection of Tracheobronchial Tree, Via Natural or Artificial Opening Endoscopic (ICD-10-PCS; CPT 31622; principal; 2022-03-20 10:30)
DX: C34.11 Malignant neoplasm of upper lobe, right bronchus or lung (principal); J18.9 Pneumonia, unspecified organism; J96.01 Acute respiratory failure with hypoxia; I24.8 Other forms of acute ischemic heart disease; R13.10 Dysphagia, unspecified; J43.9 Emphysema, unspecified; R00.0 Tachycardia, unspecified; Z20.822 Contact with and (suspected) exposure to COVID-19; Z87.891 Personal history of nicotine dependence; Z79.51 Long term (current) use of inhaled steroids; Z79.899 Other long term (current) drug therapy
CPT/HCPCS: 0241U; 36415; 71250; 80048; 80053; 82040; 82378; 83605; 83615; 83735; 83880; 84100; 84478; 84484; 85025; 85610; 87040; 88305; 88341; 88342; 93005; 99285; J0171; J0330; J1650; J2250; J2370; J2405; J2543

== ENCOUNTER → 2022-04-08 13:15 | Outpatient (BNVA) | payer MEDICARE, SELFPAY | PROVIDERS: PCP Internal Medicine; Visit Provider Internal Medicine Pulmonary Disease | DX: J43.9 Emphysema, unspecified (principal); G47.00 Insomnia, unspecified; R13.19 Other dysphagia; R91.8 Other nonspecific abnormal finding of lung field; Z99.81 Dependence on supplemental oxygen | CPT/HCPCS: 94618; 99212 ==